=== PATIENT | male | born 1985 | race Caucasian/White ===

== ENCOUNTER 2024-05-27 02:53 | Emergency (ER) | payer MEDICAID, SELFPAY ==
[2024-05-27 03:00] VITALS: PULSE 111; O2SAT 97
[2024-05-27 03:42] VITALS: BP 132/87; PULSE 94; RESP 20; TEMP 36.7; O2SAT 98; BMI 34.5
[2024-05-27 04:41] LABS: Influenza A PCR NEGATIVE (Negative); Influenza B PCR NEGATIVE (Negative); Resp Syncy Virus RNA Qual PCR NEGATIVE (Negative); SARS COV2 PCR INHOUSE NEGATIVE (Negative)
--- NOTE | 2024-05-27 06:01 | ED.GENADULT ---
HPI - General Adult General Chief complaint: Nausea/Vomiting/Diarrhea Stated complaint: Sick, ETOH crack, was w/ PD Time Seen by Provider: 05/27/24 05:56 Source: patient, EMS and police Mode of arrival: EMS Limitations: other History of Present Illness ED Provider: Dr. Darlyn Jimenez HPI narrative: Patient comes to the emergency room via ambulance. According to EMS, earlier today PD was looking for the patient, seems that patient was shoplifting earlier today at [facility]. They [place] the [place]. When PD went to arrest him, patient reported nausea and diarrhea no abdominal pain and reports drug use. PD called EMS and EMS brought him to the emergency room. Patient denies suicidal or homicidal ideation. Patient denies any falls. Related Data Allergies Allergy/AdvReac Type Severity Reaction Status Date / Time No Known Allergies Allergy Verified 05/27/24 03:47 Review of Systems Review of Systems: Constitutional : No Weight loss, No Fever, No Chills, No Night Sweats, No Fatigue, No Malaise ENT/Mouth : No Hearing loss, No Ear Pain, No Nasal Congestion, No Sinus Pain, No Hoarseness, No sore throat, No Rhinorrhea, No Swallowing Difficulty Eyes: No Eye Pain, No Swelling, No Redness, No Foreign Body, No Discharge, No Vision Changes Cardiovascular : No Chest Pain, No SOB, No Dyspnea on Exertion, No Orthopnea, No Edema, No Palpitations Respiratory : No Cough, No Sputum, No Wheezing, No Smoke Exposure, No Dyspnea Gastrointestinal : No Nausea, No Vomiting, No Diarrhea, No Constipation, No abdominal Pain, No Hematochezia, No Melena Genitourinary : no irregular bleeding, No Dysuria, No Urinary Frequency, No Hematuria, No Urinary Incontinence, No Urgency, No Flank Pain, No Urinary Flow Changes, No Hesitancy Musculoskeletal : No joint pain, No Myalgias, No Joint Swelling Skin : No Skin Lesions, No rash Neuro : No Weakness, No Numbness, No Paresthesias, No Loss of Consciousness, No Dizziness, No Headache Psych : No Anxiety/Panic, No Depression, No SI/HI/AH/VH, admits to polysubstance abuse Heme/Lymph: No Bruising, No Bleeding,No Lymphadenopathy Endocrine : No Polyuria, No Polydipsia, No Temperature Intolerance [facility] Past Medical History Medical History (Updated 05/27/24 @ 06:05 by Darlyn Jimenez MD) Polysubstance abuse Physical Exam ED Vital Signs: Vital Signs - 24 hr 05/27/24 03:42 Temperature 98.0 F Pulse Rate 94 Respiratory Rate 20 Blood Pressure 132/87 Pulse Oximetry 98 Oxygen Delivery Method Room Air BMI result Body Mass Index 34.5 Const Other: Appearance: Alert. Somnolent, easily arousable Eyes: Pupils equal, round and reactive to light. ENT: Pharynx normal. Neck: Normal inspection. Neck supple. No lymph nodes noted. No crepitus CVS: Normal heart rate and rhythm. Pulses normal. Normal S1 and S2 Respiratory: No respiratory distress. Breath sounds normal. No Wheezing. No rales Abdomen: Soft and nontender. No rigidity. No distention. Skin: Skin warm and dry. Normal skin color. Normal skin turgor. Extremities: No lower extremity edema. No Lacerations. No Rash Neuro: Moving all extremities Psych: calm, cooperative, somnolent but easily arousable Course Course Course Narrative: -patient denies any falls, patient does not have any obvious injuries to indicate any kind of trauma. -all of patient's labs pending -on arrival, patient denied SI or HI when he was awake, alert and oriented x3. Patient admitted to using drugs. -physician observation started at 6 a.m. Medical Decision Making Medical Decision Making MDM Narrative: Patient likely used ETOH and/or drugs. No signs of trauma -patient is not on a Section 12, patient is not SI or HI -metabolize to freedom Differential Diagnosis Differential Diagnoses: The differential diagnosis associated with the presentation includes (As above) Admission/Observation Consideration of admission/observation: Escalation of care including admission/observation considered (Patient is under physician observation waiting to become sober) Lab Data Labs: Lab Results 05/27/24 Range/Units 03:49 Influenza Type A (PCR) NEGATIVE (Negative) Influenza Type B (PCR) NEGATIVE (Negative) RSV RNA Qual (PCR) NEGATIVE (Negative) SARS-CoV-2 RNA (RT-PCR) NEGATIVE (Negative) Discharge Plan Discharge Clinical Impression: Polysubstance abuse Patient Disposition: Still a Patient Print Language: Serbian
[2024-05-27 06:35] LABS: Basophils Percent Auto 0.2 % (0-2); Eosinophils Percent Auto 0.7 % (0-4); Hematocrit 37.7 % (42.0-52.0); Imm Gran Abs Auto 0.02 X10*3/uL (0.00-0.03); Imm Gran Pct Auto 0.3 % (0.0-0.4); Lymphocytes Absolute Auto 0.7 X10*3/uL (1.2-4.9); Lymphocytes Percent Auto 11.8 % (20-40); MANUAL DIFF FLAG NO; Mean Corpuscular HGB Conc 37.1 g/dl (31.0-36.0); Mean Corpuscular Volume 83.6 fL (80.0-98.0); Mean Platelet Volume 11.3 fL (9.4-12.4); Monocytes Absolute Auto 0.6 X10*3/uL (0.1-1.2); Monocytes Percent Auto 10.1 % (2-11); Neutrophils Absolute Auto 4.5 x10*3/uL (2.0-8.3); Neutrophils Percent Auto 76.9 % (45-73); Platelet Count 274 X10*3/uL (160-400); Red Blood Count 4.51 X10*6/uL (4.60-5.80); Red Cell Distribution Width 12.5 % (11.0-16.0); White Blood Count 5.9 X10*3/uL (4.8-10.8)
[2024-05-27 06:49] LABS: Amphetamine Screen Urine Not Detected (Not Detect); Barbiturates, Urine Not Detected (Not Detect); Benzodiazepines Screen Urine Not Detected (Not Detect); Buprenorphine Scr Not Detected (Not Detect); Cannabinoid Screen Urine POSITIVE (Not Detect); Cocaine Screen Urine POSITIVE (Not Detect); Fentanyl, urine Not Detected (Not Detect); Methadone Screen, Urine Not Detected (Not Detect); Opiate Screen Urine Not Detected (Not Detect); Oxycodone Screen Urine Not Detected (Not Detect); Phencyclidine Screen Urine Not Detected (Not Detect)
[2024-05-27 07:27] VITALS: BP 125/64; PULSE 79; RESP 16; TEMP 37.4; O2SAT 98
[2024-05-27 07:52] LABS: Alanine Aminotransferase 23 U/L (0-40); Albumin Level 4.1 g/dL (3.5-5.0); Alkaline Phosphatase 88 U/L (39-117); Anion Gap 13 (12-20); Aspartate Amino Transferase 31 U/L (5-37); Bilirubin Direct 0.3 mg/dL (0.0-0.5); Bilirubin Total 0.7 mg/dL (0.0-1.0); Blood Urea Nitrogen 12 mg/dL (9-16); Calcium 8.8 mg/dL (8.4-10.2); Carbon Dioxide 25 mmol/L (22-29); Chloride 103 mmol/L (96-108); Creatinine Clr Calc Pharmacy 109.4; Estimated Glomerular Filt Rate > 60; Ethanol < 10 mg/dL; Glucose Random 96 mg/dL (60-115); Magnesium 1.9 mg/dL (1.6-2.6); Sodium 138 mmol/L (135-145); Total Protein 7.5 g/dL (6.5-8.0)
[2024-05-27] MEDS: Potassium Chloride ER 20 MEQ TAB.ER.PRT 40 MEQ PO (09:20)
--- NOTE | 2024-05-27 10:24 | PC.NURSE ---
Pt intermittently awake, eating and drinking. Accepted PO K+ as ordered and back to sleep. Able to make needs known. Camn be aggressive at times but redirected verbally
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
[2024-05-27] MEDS: Naloxone HCl Nasal TAKE HOME 4 MG SPRAY 8 MG NOSTRILALT (12:55)
[2024-05-27 13:16] VITALS: BP 147/74; PULSE 76; RESP 16; TEMP 36.2; O2SAT 96
== END 2024-05-27 13:17 | disposition home or self-care (01) ==
PROVIDERS: Emergency Provider Emergency Medicine
DX: R11.2 Nausea with vomiting, unspecified (principal); F19.10 Other psychoactive substance abuse, uncomplicated; R19.7 Diarrhea, unspecified; Z79.899 Other long term (current) drug therapy; Z51.81 Encounter for therapeutic drug level monitoring; Z03.818 Encounter for observation for suspected exposure to other biological agents ruled out
CPT/HCPCS: 0241U; 36415; 80048; 80076; 80307; 83735; 85025; 99283; S9485

== ENCOUNTER 2024-05-27 13:44 | Inpatient (IN) | payer MEDICARE, MEDICAID, SELFPAY ==
[2024-05-27 13:47] VITALS: BP 142/86; PULSE 89; RESP 18; TEMP 37.6; O2SAT 99; BMI 30.8
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
[2024-05-27 14:20] VITALS: BP 144/75; PULSE 86; RESP 16; O2SAT 98
[2024-05-27 14:21] VITALS: RESP 14
--- NOTE | 2024-05-27 14:24 | PC.NURSE ---
pt re-presents to the emergency department after being discharged from the main ED. Patient is self reporting paranoia, asking what year it is, why the president is an alien and why he has to place change roof bolter. Pt agitated, originally unwilling to place change roof bolter. JR, Security watching over patient as he changes. Patient initially unwilling to give up belongings but did eventually place change roof bolter. When this RN attempted to interview patient as to why he is here patient states Its too damn early to go home, why the fuck you think Im here . When asked if he feels suicidal or homicidal pt reports man don't fucking ask me those damn questions, I aint feeling any of that shit, dont ask me nothin . Patient was escorted to his room and now appears to be sleeping, RR even and unlabored. Patient is refusing to give urine sample at this time
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
[2024-05-27 20:12] VITALS: BP 155/92; PULSE 90; RESP 18; TEMP 37.4; O2SAT 99
[2024-05-27] MEDS: OLANZapine 10 MG TABLET PO (21:58)
[2024-05-27] MEDS: traZODone HCL 50 MG TABLET PO (22:01)
[2024-05-28] MEDS: LORazepam 1 MG TABLET 2 MG PO ×5 (00:13→20:12)
--- NOTE | 2024-05-28 00:46 | PC.NURSE ---
0010: pt pacing unit requesting a med. PRN medication given.
[2024-05-28] MEDS: diphenhydrAMINE HCL 25 MG CAPSULE 50 MG PO (01:53)
[2024-05-28] MEDS: HaloperidoL 5 MG TABLET PO (01:53)
--- NOTE | 2024-05-28 01:54 | PC.NURSE ---
Pt was continuing to be disruptive, yelling at staff, continuing to get in the shower after being told no, slamming the door to the bathroom and repeatedly asking for money for cigarettes. MD Jimenez aware. Pt medicated to AUG.
[2024-05-28] MEDS: Loperamide HCl 2 MG CAPSULE 4 MG PO (03:00)
[2024-05-28 03:03] VITALS: BP 166/104; PULSE 93; RESP 18; TEMP 36.7; O2SAT 97
--- NOTE | 2024-05-28 03:04 | PC.NURSE ---
Pt has had at least 4 episodes of diarrhea since beginning of my shift. MD Jimenez aware. 4mg initial dose Imodium ordered per .
--- NOTE | 2024-05-28 08:17 | PHA.MEDREC ---
Pharmacy Consult ? Medication Reconciliation Pharmacy has reviewed the medication reconciliation done by nursing. claims match med list.
--- NOTE | 2024-05-28 08:23 | PHA.MEDREC ---
Addendum entered by Mauro Gonzales RPh 05/28/24 08:28: Reviewed by [facility] Original Note: Pharmacy Consult ? Medication Reconciliation Pharmacy has Reviewed the medication reconciliation done by nursing. Patient is uncooperative and aggressive with staff per ED nurse. No contacts on file to verify medications. Couldn't confirm last dose of Invega Sustenna 156 mg. last filled 05/25/24 for 28 days.
[2024-05-28] MEDS: OLANZapine 10 MG TABLET PO ×2 (09:15→20:13)
--- NOTE | 2024-05-28 11:58 | PC.NURSE ---
patient awake most of the morning. began escalating with his behavior, yells out swears at times but then calms down. was given Zyprexa PO which patient willingly took. patient continued behaviors and was given Ativan PO which he also willingly took. patient came up to nurses station multiple times demanding food, asking to leave, some times mumbles to himself and hard to understand. patient again requested clothes and when told he would not be given clothes yelled fuck loudly in front of nurses station. patient brought back to room by security. will continues to assess behavior.
--- NOTE | 2024-05-28 12:24 | PC.NURSE ---
patient sleeping at this time
[2024-05-28 15:27] VITALS: BP 144/75; PULSE 84; RESP 16; TEMP 36.7; O2SAT 100
[2024-05-28] MEDS: traZODone HCL 50 MG TABLET PO (20:13)
[2024-05-28 23:24] LABS: Appearance Urine Clear; Color Urine Yellow; Glucose Urine UA Negative (Negative); Leukocyte Esterase Urine Negative (Negative); Nitrite Urine Negative (Negative); Specific Gravity - Urine <= 1.005 (1.005-1.025); UMIC TRIGGER UACC YES; Urine Blood Small (1+) (Negative); Urine Ketones Negative (Negative); Urine Protein Negative (Neg-Trace)
[2024-05-28 23:27] LABS: Bacteria Urine None Seen (None Seen); Hyaline Casts Urine 0-2 /LPF (0-2); Squamous Epithelial Cell Urine 0-2 /HPF (0-2); WBC Urine 0-5 /HPF (0-5)
[2024-05-28 23:37] LABS: Amphetamine Screen Urine Not Detected (Not Detect); Barbiturates, Urine Not Detected (Not Detect); Benzodiazepines Screen Urine Not Detected (Not Detect); Buprenorphine Scr Not Detected (Not Detect); Cannabinoid Screen Urine Not Detected (Not Detect); Cocaine Screen Urine Not Detected (Not Detect); Fentanyl, urine Not Detected (Not Detect); Methadone Screen, Urine Not Detected (Not Detect); Opiate Screen Urine Not Detected (Not Detect); Oxycodone Screen Urine Not Detected (Not Detect); Phencyclidine Screen Urine Not Detected (Not Detect)
--- NOTE | 2024-05-29 | ECG_ITS ---
Test Reason : med clearance Blood Pressure : / mmHG Vent. Rate : 078 BPM Atrial Rate : 078 BPM P-R Int : 120 ms QRS Dur : 086 ms QT Int : 366 ms P-R-T Axes : 036 045 021 degrees QTc Int : 417 ms Normal sinus rhythm Minimal voltage criteria for LVH, may be normal variant ( Sokolow-Singletary ) Nonspecific T wave abnormality Abnormal ECG No previous ECGs available Referred By: Gonzalo Devine Electronically Signed By:ABDIEL VILLAR
[2024-05-29] MEDS: LORazepam 1 MG TABLET 2 MG PO ×4 (02:09→21:48)
[2024-05-29] MEDS: HaloperidoL 5 MG TABLET 10 MG PO (02:10)
[2024-05-29] MEDS: diphenhydrAMINE HCL 25 MG CAPSULE 50 MG PO (02:10)
[2024-05-29 06:11] VITALS: BP 135/86; PULSE 92; RESP 16; TEMP 36.8; O2SAT 98
--- NOTE | 2024-05-29 06:31 | PC.NURSE ---
Patient slept through the night, no distress observed/reported, disposition per care team is sec-12 inpatient bed search, med rec completed/compliant, behavior loud, disruptive, and difficult to follow direction, VSS, will continue to monitor
[2024-05-29 08:42] LABS: Alanine Aminotransferase 25 U/L (0-40); Alkaline Phosphatase 91 U/L (39-117); Anion Gap 13 (12-20); Aspartate Amino Transferase 26 U/L (5-37); Bilirubin Total 0.3 mg/dL (0.0-1.0); Blood Urea Nitrogen 7 mg/dL (9-16); Carbon Dioxide 21 mmol/L (22-29); Chloride 107 mmol/L (96-108); Creatinine Clr Calc Pharmacy 137.3; Estimated Glomerular Filt Rate > 60; Glucose Random 111 mg/dL (60-115); Potassium 3.3 mmol/L (3.3-5.1); Sodium 138 mmol/L (135-145); Total Protein 7.7 g/dL (6.5-8.0)
[2024-05-29 09:10] LABS: Basophils Percent Auto 0.5 % (0-2); Eosinophils Absolute Auto 0.2 X10*3/uL (0.0-0.4); Eosinophils Percent Auto 2.5 % (0-4); Hematocrit 36.9 % (42.0-52.0); Imm Gran Abs Auto 0.02 X10*3/uL (0.00-0.03); Imm Gran Pct Auto 0.3 % (0.0-0.4); Lymphocytes Absolute Auto 1.6 X10*3/uL (1.2-4.9); MANUAL DIFF FLAG SCAN; Mean Corpuscular Volume 82.7 fL (80.0-98.0); Monocytes Absolute Auto 0.9 X10*3/uL (0.1-1.2); Neutrophils Absolute Auto 3.6 x10*3/uL (2.0-8.3); Neutrophils Percent Auto 57.7 % (45-73); PLT CLUMP 1; Red Blood Count 4.46 X10*6/uL (4.60-5.80); Red Cell Distribution Width 12.7 % (11.0-16.0); SCAN SMEAR FLAG 1
[2024-05-29 09:12] LABS: White Blood Count 6.3 X10*3/uL (4.8-10.8)
[2024-05-29 09:13] LABS: Hemoglobin 12.4 g/dl (14.0-18.0); Mean Corpuscular HGB Conc 33.6 g/dl (31.0-36.0); Mean Corpuscular Hemoglobin 27.8 pg (27.0-33.0)
[2024-05-29 09:14] LABS: Platelet Count 164 X10*3/uL (160-400)
[2024-05-29 09:16] LABS: SLIDE REVIEW VERIFIED
--- NOTE | 2024-05-29 11:27 | PC.NURSE ---
pt remains delusional with unorganized thoughts. inaudible speech/difficult to conversate with but remains calm/cooperative. pt verbalizes increase in anxiety - prn medication utilized. effectiveness pending.
--- NOTE | 2024-05-29 13:38 | PC.NURSE ---
report given to SILVIA Srinivasan on M5 at this time.
[2024-05-29] MEDS: Nicotine Polacrilex 2 MG GUM 4 MG BUCCAL (14:07)
[2024-05-29] MEDS: hydrOXYzine HCL 25 MG TABLET PO ×2 (14:07→21:48)
[2024-05-29 14:45] VITALS: BP 136/84; PULSE 88; RESP 16; TEMP 36.9; O2SAT 100
[2024-05-29 14:46] VITALS: BMI 31.0
--- NOTE | 2024-05-29 17:04 | PC.ADMIT ---
Jay is a 39 year old male admitted to [facility] from the ED POD at 1421 with a dz of Schizoaffective disorder bipolar type. He refused to sign a CV with Dr. Kern and is here on a 12 B at this time. Pt was picked up by Cory CRAWFORD for shoplifting?at the [employer] when he? began to complain of nausea and diarrhea. He was brought to the ED and found to be delusional, paranoid, and making hypersexual remarks. Pt is not known to the CARE team but has had multiple?IPLOC stays with most recently on [facility] at [facility]. Per CARE team note he has a hx of polysubstance abuse, schizoaffective disorder, bipolar type, alcohol use, and medication non compliance. Per pharmacy documentation, they were unable to confirm the last dose of Invega Sustena but Jay states he last had an injection by? the nurse that gave me it on?05/25 . He states he has been taking his medication but recently used cocaine and marijuana and thinks his cocaine might have been laced, tox screen negative for all substances however. Per CARE team note, pt disclosed being non compliant with medications. Jay was very irritable upon arrival, clearly sedated from previous prn given in the ED, but was cooperative with safety and skin check which were unremarkable. His speech was slow and slurred making it difficult to understand him. He was able to voice that he was overwhelmed and felt he was being asked too many questions at once. He was given a break and? was able to resume with admission questions. He denied SI/HI/AVH, he agreed to receive Flu vaccine and an addictions consult placed as agreed. He also stated You guys just want to over medicate me and make me like a zombie and kill me! TW reassured him of his safety and oriented him to the unit and gave him some snacks/menu selection to fill out. He has not made any inappropriate/sexual comments since admission to . He is on q15 min checks at this time.?
[2024-05-29] MEDS: Flu Vacc TS2024-25(6mos up)/PF 0.5 ML SYRINGE IM (18:12)
[2024-05-29 20:00] VITALS: BP 163/93
[2024-05-29] MEDS: traZODone HCL 50 MG TABLET PO (20:08)
[2024-05-29] MEDS: OLANZapine 10 MG TABLET PO (20:09)
[2024-05-29 20:30] VITALS: PULSE 107; O2SAT 97
[2024-05-30] MEDS: LORazepam 1 MG TABLET 2 MG PO ×3 (01:43→11:54)
[2024-05-30] MEDS: Nicotine Polacrilex 2 MG GUM 4 MG BUCCAL ×2 (02:32→10:38)
[2024-05-30 09:41] LABS: Estimated Average Glucose 108 mg/dL; Hemoglobin A1C 121.0042 umol/L; Hemoglobin A1c % 5.4 % (<6.0); Total Hemoglobin (HGBA1C) 3414.9334 umol/L
[2024-05-30 09:55] LABS: Cholesterol 113 mg/dL (<200); HDL Cholesterol 40 mg/dL (>40); LDL Cholesterol Calculated 65 mg/dL (<100); Magnesium 1.8 mg/dL (1.6-2.6); Triglycerides 44 mg/dL (<150)
[2024-05-30 10:09] LABS: Free T4 (Free Thyroxine) 1.31 ng/dL (0.71-1.85); Thyroid Stimulating Hormone 1.97 uIU/mL (0.32-4.0)
[2024-05-30 10:21] LABS: Folate 7.4 ng/mL (> or = 4.0); Vitamin B12 511 pg/mL (200-900)
[2024-05-30] MEDS: hydrOXYzine HCL 25 MG TABLET PO ×2 (10:38→22:25)
[2024-05-30] MEDS: Acetaminophen 325 MG TABLET 650 MG PO (10:38)
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
[2024-05-30 20:00] VITALS: BP 163/92; PULSE 92; TEMP 36.6; O2SAT 99
[2024-05-30] MEDS: traZODone HCL 50 MG TABLET PO ×2 (20:05→22:50)
[2024-05-30] MEDS: OLANZapine 10 MG TABLET PO (20:06)
[2024-05-30 22:00] VITALS: BP 155/77; PULSE 104; TEMP 37.3; O2SAT 99
[2024-05-31] MEDS: OLANZapine 5 MG TABLET PO ×4 (01:38→18:22)
[2024-05-31] MEDS: Nicotine Polacrilex 2 MG GUM 4 MG BUCCAL ×3 (01:38→13:07)
[2024-05-31] MEDS: LORazepam 1 MG TABLET 2 MG PO ×3 (03:01→20:26)
[2024-05-31] MEDS: OLANZapine 10 MG TABLET PO ×2 (07:58→20:26)
[2024-05-31 08:00] VITALS: BP 143/83; PULSE 110; RESP 18; TEMP 36.9; O2SAT 97
[2024-05-31] MEDS: hydrOXYzine HCL 25 MG TABLET PO ×3 (08:16→23:52)
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
[2024-05-31] MEDS: Paliperidone ER 3 MG TAB.ER.24 PO (10:18)
[2024-05-31] MEDS: Paliperidone Palmitate 156 MG/ML SYRINGE IM (11:06)
[2024-05-31] MEDS: Lithium Carbonate ER 450 MG TABLET.ER PO ×2 (11:40→20:26)
[2024-05-31 20:00] VITALS: BP 171/92; PULSE 96; TEMP 36.7; O2SAT 100
[2024-06-01] MEDS: LORazepam 1 MG TABLET 2 MG PO ×3 (03:49→22:47)
[2024-06-01] MEDS: OLANZapine 5 MG TABLET PO ×2 (04:27→18:22)
[2024-06-01] MEDS: Acetaminophen 325 MG TABLET 650 MG PO ×2 (04:29→12:01)
[2024-06-01 08:00] VITALS: BP 137/88; PULSE 86; TEMP 36.9; O2SAT 98
[2024-06-01] MEDS: OLANZapine 10 MG TABLET PO ×2 (08:10→21:12)
[2024-06-01] MEDS: hydrOXYzine HCL 25 MG TABLET PO ×2 (10:53→16:23)
--- NOTE | 2024-06-01 11:01 | MHC.RECOVRN ---
AUDIT-C Brief Intervention Pt had positive screen for unhealthy alcohol use on admission. Attempted to meet with pt to discuss alcohol use and offer resources, pt declined. Per patient's RN, pt now denies alcohol use.
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
[2024-06-01] MEDS: traZODone HCL 50 MG TABLET PO (21:12)
[2024-06-01] MEDS: Doxepin HCl 25 MG CAPSULE 50 MG PO (21:12)
[2024-06-01] MEDS: Lithium Carbonate ER 450 MG TABLET.ER 900 MG PO (21:12)
[2024-06-01] MEDS: Nicotine Polacrilex 2 MG GUM 4 MG BUCCAL (22:50)
[2024-06-02] MEDS: hydrOXYzine HCL 25 MG TABLET PO ×4 (00:51→20:54)
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
[2024-06-02] MEDS: OLANZapine 5 MG TABLET PO (02:21)
[2024-06-02] MEDS: LORazepam 1 MG TABLET 2 MG PO ×5 (02:26→21:25)
[2024-06-02] MEDS: OLANZapine 10 MG TABLET PO ×5 (02:59→20:52)
[2024-06-02 08:00] VITALS: BP 143/84; PULSE 101; RESP 18; TEMP 36.5; O2SAT 99
[2024-06-02] MEDS: Nicotine Polacrilex 2 MG GUM 4 MG BUCCAL ×2 (08:01→15:17)
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
[2024-06-02 20:00] VITALS: BP 126/72; PULSE 101; O2SAT 96
[2024-06-02] MEDS: Doxepin HCl 25 MG CAPSULE 50 MG PO (20:52)
[2024-06-03] MEDS: traZODone HCL 50 MG TABLET PO (01:16)
[2024-06-03] MEDS: Lithium Carbonate ER 450 MG TABLET.ER 900 MG PO ×2 (01:16→22:35)
[2024-06-03] MEDS: OLANZapine 10 MG TABLET PO ×5 (01:39→22:34)
[2024-06-03] MEDS: LORazepam 1 MG TABLET 2 MG PO ×4 (01:39→22:29)
[2024-06-03] MEDS: chlorproMAZINE HCl 100 MG TABLET PO ×2 (02:22→14:32)
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
[2024-06-03] MEDS: chlorproMAZINE HCl 25 MG TABLET 50 MG PO ×2 (04:04→08:55)
--- NOTE | 2024-06-03 05:55 | PC.NURSE ---
Patient has called 911 again; staff spoke to PD and apologized on that phone call.
[2024-06-03 08:00] VITALS: PULSE 88; RESP 150; TEMP 36.4; O2SAT 98
[2024-06-03] MEDS: Paliperidone Palmitate 156 MG/ML SYRINGE IM (09:24)
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
[2024-06-03] MEDS: Acetaminophen 325 MG TABLET 650 MG PO ×2 (14:32→20:52)
[2024-06-03] MEDS: hydrOXYzine HCL 25 MG TABLET PO (15:15)
[2024-06-03] MEDS: Nicotine Polacrilex 2 MG GUM 4 MG BUCCAL (15:15)
[2024-06-03] MEDS: Doxepin HCl 25 MG CAPSULE 50 MG PO (22:34)
[2024-06-04] MEDS: traZODone HCL 50 MG TABLET PO ×2 (02:12→20:57)
[2024-06-04] MEDS: LORazepam 1 MG TABLET 2 MG PO (03:31)
[2024-06-04] MEDS: chlorproMAZINE HCl 100 MG TABLET PO ×3 (07:20→18:31)
[2024-06-04 08:00] VITALS: BP 139/102; PULSE 104; RESP 18; TEMP 36.6; O2SAT 100
[2024-06-04] MEDS: OLANZapine 10 MG TABLET PO ×2 (08:38→13:01)
[2024-06-04] MEDS: Magnesium Hydrox/Alum Hydrox 30 ML ORAL.SUSP PO (08:42)
[2024-06-04 09:13] LABS: Lithium 0.45 mmol/L (0.60-1.20)
[2024-06-04 09:25] LABS: Blood Urea Nitrogen 12 mg/dL (9-16); Creatinine Clr Calc Pharmacy 120.5; Estimated Glomerular Filt Rate > 60
[2024-06-04 09:39] LABS: TSH reflex Free T4 3.43 uIU/mL (0.32-4.0)
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
[2024-06-04] MEDS: hydrOXYzine HCL 25 MG TABLET PO ×2 (11:37→18:31)
[2024-06-04] MEDS: Paliperidone ER 6 MG TAB.ER.24 PO (11:38)
[2024-06-04] MEDS: Nicotine Polacrilex 2 MG GUM 4 MG BUCCAL (12:21)
[2024-06-04] MEDS: Divalproex Sodium ER 250 MG TAB.ER.24H 750 MG PO ×2 (15:01→20:57)
[2024-06-04] MEDS: HaloperidoL 5 MG TABLET 10 MG PO (15:30)
[2024-06-04 20:00] VITALS: BP 132/72; PULSE 105; RESP 18; TEMP 37.3; O2SAT 96
--- NOTE | 2024-06-04 20:04 | PC.NURSE ---
Patient was standing at med room door at approximately 2000. This music writer asked How can I help you? and patient replied Gimme some sex. Patient redirected.
[2024-06-04] MEDS: Doxepin HCl 25 MG CAPSULE 50 MG PO (20:55)
[2024-06-04] MEDS: Lithium Carbonate ER 450 MG TABLET.ER 900 MG PO (20:57)
[2024-06-04] MEDS: OLANZapine ODT 10 MG TAB.RAPDIS 30 MG TRANSLINGU (21:27)
[2024-06-05] MEDS: chlorproMAZINE HCl 100 MG TABLET PO ×4 (00:27→21:03)
[2024-06-05] MEDS: Nicotine Polacrilex 2 MG GUM 4 MG BUCCAL ×2 (00:27→18:48)
[2024-06-05] MEDS: OLANZapine 10 MG TABLET PO ×3 (00:27→17:36)
[2024-06-05] MEDS: hydrOXYzine HCL 25 MG TABLET PO (00:27)
[2024-06-05] MEDS: Paliperidone ER 6 MG TAB.ER.24 PO (07:41)
[2024-06-05 08:00] VITALS: BP 149/81; PULSE 105; TEMP 37.1; O2SAT 100
--- NOTE | 2024-06-05 09:59 | HO.PSYCHPN ---
Subjective Subjective Date of Service: 06/05/24 Reason For Visit: Schizoaffective disorder Interim History: met with patient; discussed with team no change in presentation and pt remains disorganized in speech and behavior, yelling, slamming doors, saying bizarre or things completely unrelated to current situation. Mental Status Exam Mental Status Exam Narrative: Pt is alert and oriented; behavior is disorganized, manic, irritable, yelling, slamming doors, demanding and saying either bizarre or sexually inappropriate things; at times can also be cooperative and friendly; patient is not in distress; dressed in casual attire, disheveled; mood is described as good and affect constricted; eye contact appropriate; Speech is back to mumbling; sometimes loud sometimes soft volume; psychomotor agitation present; thought process can be goal directed but also considerably disorganized; Thought content is on leaving the hospital and coming back, with paranoid delusional ideations; denies any SI/HI. Positive for AH and patient is internally preoccupied. Patients insight and judgment impaired. Diagnostics Vital Signs (24Hr): Vital Signs - 24 hr 06/04/24 20:00 Temperature 99.1 F Pulse Rate 105 H Respiratory Rate 18 Blood Pressure 132/72 Pulse Oximetry 96 Oxygen Delivery Method Room Air BMI result Body Mass Index 31.0 Labs 05/29/24 08:13 06/08/24 11:03 Labs: Laboratory Results - last 48 hr 06/04/24 08:51 BUN 12 Creatinine 0.88 Estim Creat Clear Calc 120.5 Estimated GFR > 60 TSH 3.43 [place] 0.45 L Medications Medications Current Medications Acetaminophen (Acetaminophen 325 Mg Tablet) 650 mg PO Q6H PRN PRN Reason: Headache/Pain Mild Scale (1-3) Last Admin: 06/03/24 20:52 Dose: 650 mg Al Hydroxide/Mg Hydroxide (Magnesium Hydrox/Alum Hydrox 30 Ml Oral.Susp) 30 ml PO Q6H PRN PRN Reason: Heartburn/Nausea Last Admin: 06/04/24 08:42 Dose: 30 ml Chlorpromazine HCl (Chlorpromazine Hcl 100 Mg Tablet) 100 mg PO Q4H PRN PRN Reason: agitation Last Admin: 06/05/24 07:41 Dose: 100 mg Divalproex Sodium (Divalproex Sodium Er 250 Mg Tab.Er.24h) 750 mg PO BEDTIME HELDER Last Admin: 06/04/24 20:57 Dose: 750 mg Doxepin HCl (Doxepin Hcl 25 Mg Capsule) 50 mg PO BEDTIME HELDER Last Admin: 06/04/24 20:55 Dose: 50 mg Hydroxyzine HCl (Hydroxyzine Hcl 25 Mg Tablet) 25 mg PO Q6H PRN PRN Reason: Anxiety Last Admin: 06/05/24 00:27 Dose: 25 mg [place] Carbonate ([place] Carbonate Er 450 Mg Tablet.Er) 900 mg PO BEDTIME HELDER Last Admin: 06/04/24 20:57 Dose: 900 mg Magnesium Hydroxide (Milk Of Magnesia 30 Ml Oral.Susp) 30 ml PO DAILY PRN PRN Reason: Constipation Nicotine (Nicotine 21 Mg Patch.Td24) 21 mg TRANSDERMA DAILY PRN PRN Reason: nicotine cravings Nicotine Polacrilex (Nicotine Polacrilex 2 Mg Gum) 4 mg BUCCAL Q2H PRN PRN Reason: Nicotine Cravings Last Admin: 06/05/24 00:27 Dose: 4 mg Olanzapine (Olanzapine 10 Mg Tablet) 10 mg PO TID PRN PRN Reason: agitation Last Admin: 06/05/24 09:43 Dose: 10 mg Olanzapine (Olanzapine Odt 10 Mg Tab.Rapdis) 30 mg TRANSLINGU BEDTIME HELDER Last Admin: 06/04/24 21:27 Dose: 30 mg Paliperidone (Paliperidone Er 6 Mg Tab.Er.24) 6 mg PO DAILY HELDER Last Admin: 06/05/24 07:41 Dose: 6 mg Trazodone HCl (Trazodone Hcl 50 Mg Tablet) 50 mg PO BEDTIME HELDER Last Admin: 06/04/24 20:57 Dose: 50 mg Allergies Allergies Allergy/AdvReac Type Severity Reaction Status Date / Time No Known Allergies Allergy Verified 05/27/24 13:53 Assessment & Plan Assessment & Plan (1) Schizoaffective disorder, bipolar type: Status: Acute Code(s): F25.0 - Schizoaffective disorder, bipolar type Plan HPI: Patient is a 39-year-old male with history of schizoaffective disorder bipolar type, history of polysubstance abuse who presents for disorganized behavior. Patient is a poor historian, initially mumbling it is difficult to understand him. ED/care team reports that patient was disorganized at the [facility] [employer], police detained him for shoplifting but instead brought him to the hospital. In the ED, patient was making disorganized, delusional and sexually inappropriate comments such as someone tried to kill me...hang my black ass...Alexandre is an alien...they said i was shoplifting but i wasn't...[employer] [facility] blew up....i'm a virgin, never had sex...just think of hard horney pussy... On the unit, patient got irritable, was yelling and demanding to be discharged. He did get into brief verbal altercation with a peer and may have thrown a banana peel at her. Verbally, Patient did clear up a bit and though still mumbling, was talking a little more; he seemed cooperative but remained vague and disorganized when talking about psychiatric illness or events leading up to this admission. He initially told database report writer he wants to discharge today because he has to pick his daughter up at 16:30; then he said he needs to discharge because he asked to go to his job this afternoon... He remained on a Section 12 B, However he accepted that he will not be discharging today and he was amenable to restarting medication. He denied drinking any alcohol (and UDS negative). [employer] approached him later and he was a little more open and said that has than hearing voices that have been upsetting him; he also has been very worried about people coming after him and says he wants medication to help him with the symptoms... He is not sure if he got his Invega Sustenna shot at his last admission. Patient's sister talked with social research assistant who reports that patient has been off meds since 05/08 (following discharge from psych admission at [facility]); says he's not engaging with VNA and this past week was verbally aggressive to VNA; he's been making delusional comments saying he's being attacked and threatened with a gun and recently when his sister visited he had barricaded the door with trash, needing the police to get the door open. She says he does not have a daughter. Formulation/clinical reasoning: Patient has a diagnosis of schizoaffective disorder and seems to have quickly decompensated after going off medications. It is not clear when he last had his Invega Sustenna shot although it is prescribed at 156 mg which is likely too low. He is amenable to getting back on medications including Zyprexa which is restarted now but a slightly lower dose. Patient was also on lithium and doxepin at last hospitalization however database report writer has not restarted these, as it is not clear if patient is adherent or organized enough in the community to be on a medication such as lithium that requires monitoring. Will continue to get collateral Hospital course: 05/31 Patient remains quite disorganized in both speech and behavior. Patient repeatedly comes up to database report writer saying that he needs to go home, do some task and then he will come back to the hospital later on. Each time database report writer explains that this is not possible but 5 minutes later he comes up and asks again. He says he needs to go back to his apartment because he has a VNA for his diabetic friend... Or that he has to go picker tender his check... Patient tells database report writer he is a good cook and his friend is a better cook and to give him a chance... Patient agreed to restarting lithium. [employer] discussed lithium which he agreed to restart but patient said he was up all night taking the initiative and getting himself on lithium... Said he saw a peer stealing something and smoking crack Patient said he has been up all night -discussed medication patient agrees to get back on Invega Sustenna, lithium, Zyprexa, doxepin -sign CV and then a 3 day 06/01 Patient remains disorganized in speech and behavior however he has become more cooperative and with much less inappropriate remarks. Still comes up and asks throughout the day to leave the hospital saying he will come back later, saying he needs fresh air, needs to get a check or other things. Each time he accepts that this is not possible but still lacks. Patient continues to ask to get phone numbers off of his phone and was irritated that this did not happen sooner however has continued to forget staff has explained to him he does not have a phone here. Reviewed medications with him and he agrees. Says AH has stopped. -says he will retract his 3 day notice and stay past Deandre 06/03: Continue current regimen and plans. Increase Thorazine 200 mg q.4 hours p.r.n. 06/04 Patient remains floridly psychotic, manic, intrusive to peers and staff, demanding, slamming doors, yelling things; patient coming up to nurses station and saying sexually inappropriate things, told nurse that he hope she gets aide and dyes; came to the bilingual secretary and said I have a pencil and my balls... Patient not sleeping during the night however he says he is. Patient continues to approach database report writer, asking to discharge for a little while to do some activity, rosen a check, go to his job, get some fresh air, and that he will return later. Patient asked database report writer and other staff for 50 cents to buy a cigarette and got loud and angry when it was not given. Male peer approached staff and said due to the intrusiveness, was feeling like striking this patient however was able to be redirected He remains willing to medications. -got a dose of Haldol and Depakote ER 750 mg today; starting scheduled Depakote q.h.s. -patient also willingly retracted his 3 day notice Regarding medication management: Patient got 2nd installment of paliperidone 156; considered restarting paliperidone 6 mg daily for a while however instead, will likely just add Depakote q.h.s. since patient not sleeping and has continued manic symptoms. Will also change his daily Zyprexa dose all to bedtime to help with insomnia. 06/05 remains disorganized in speech, behavior, intrusive and making bizarre, unrelated or sexually inappropriate comments -received INvega sustenna but about 78mg of long acting shy of adequate loading dose (roughly equiv to PO of 12mg daily) -also on Zyprexa 30mg qhs (was prescribed 25mg as home dose) -on home dose of [place]; labs for level pending -Newly Started on depakote 1000mg qhs: labs for level pending will not change med regimen at this time as labs for both mood stabilizers are pending and need more time to assess if effective Plan: CV (retracted 3 day on 06/04) Q 15 minute checks Increased to Depakote ER 1000 mg q.h.s. for continued manic symptoms and not sleeping Received Invega Sustenna 156 mg IM on 05/31 and then another 156 mg on 06/03; will increase monthly dose to 234 mg q.month Continue lithium ER 900 mg q.h.s. -will get labs Change Zyprexa to Zydis and 20 mg q.h.s. since continued insomnia Continue doxepin 50 mg q.h.s. which is a home medication for his insomnia Patient educated on: diagnosis, medication risk/benefits and therapeutic strategies Informed Consent: understands, does not understand and further education needed Reason for continued inpatient stay Substantial Risk for: inability to function Time Spent With Patient Time: Total time managing care of this patient today ____ minutes.
--- NOTE | 2024-06-05 11:01 | PC.NURSE ---
Jay's BP this morning was 149/81. Providers Elijah Stephen MD and FRIEDA Zhou made aware via tiger text.
[2024-06-05] MEDS: Divalproex Sodium 500 MG TABLET.DR PO (11:36)
[2024-06-05 14:35] VITALS: BP 138/86; PULSE 111
[2024-06-05] MEDS: cloNIDine HCL 0.1 MG TABLET PO ×2 (14:37→21:03)
[2024-06-05 20:00] VITALS: BP 148/70; PULSE 107; RESP 18; TEMP 37.2; O2SAT 98
[2024-06-05] MEDS: Zolpidem Tartrate 5 MG TABLET PO (21:03)
[2024-06-05] MEDS: Lithium Carbonate ER 450 MG TABLET.ER 900 MG PO (21:03)
[2024-06-05] MEDS: OLANZapine ODT 10 MG TAB.RAPDIS 30 MG TRANSLINGU (21:03)
[2024-06-05] MEDS: Divalproex Sodium ER 500 MG TAB.ER.24H 1000 MG PO (21:04)
[2024-06-05] MEDS: traZODone HCL 50 MG TABLET PO (21:04)
[2024-06-05] MEDS: Doxepin HCl 25 MG CAPSULE 50 MG PO (21:04)
[2024-06-06] MEDS: Nicotine Polacrilex 2 MG GUM 4 MG BUCCAL ×2 (06:54→13:29)
[2024-06-06] MEDS: hydrOXYzine HCL 25 MG TABLET PO ×2 (06:56→15:39)
[2024-06-06] MEDS: chlorproMAZINE HCl 100 MG TABLET PO ×4 (06:56→20:15)
[2024-06-06 08:30] VITALS: BP 133/68; PULSE 95; RESP 16; TEMP 36.9; O2SAT 95
[2024-06-06 08:31] VITALS: BP 133/68
[2024-06-06] MEDS: cloNIDine HCL 0.1 MG TABLET PO ×2 (08:31→20:13)
--- NOTE | 2024-06-06 08:54 | HO.PSYCHPN ---
Subjective Subjective Date of Service: 06/06/24 Reason For Visit: Schizoaffective disorder Interim History: Remains on one to one. Agitated, inappropriate for the milieu. Inappropriate comments to peers which can be triggering, especially to female peers. No responding to regime as yet. Shouting at times. Medication Compliance: Yes Side effects from medications: No Attending Groups: No Review of Systems Acute medical concerns: No Review of Systems Review of Systems Yes Unobtainable due to mental status Mental Status Exam Mental Status Exam Patient Appearance: Appropriate Patient Orientation: Person Level of Consciousness: Alert Patient Behavior: Talkative Mood Description: Labile Affect Description: Labile Patient Cognition Impaired: Yes Ability to Follow Directions: Poor Speech Pattern: Spontaneous Speech and Loud Hallucinations: Auditory Delusions: Paranoid Ideation, Grandiose and Present Thought Process: Illogical Thought Content: positive for Poverty of Content, positive for Loose Associations and positive for Tangential Depressive Symptoms: Increased Irritability Judgement: Poor Diagnostics Vital Signs (24Hr): Vital Signs - 24 hr 06/05/24 14:35 06/05/24 20:00 06/06/24 08:30 Temperature 98.9 F 98.5 F Pulse Rate 111 H 107 H 95 Respiratory Rate 18 16 Blood Pressure 138/86 148/70 H 133/68 Pulse Oximetry 98 95 Oxygen Delivery Method Room Air Room Air 06/06/24 08:31 Temperature Pulse Rate Respiratory Rate Blood Pressure 133/68 Pulse Oximetry Oxygen Delivery Method BMI result Body Mass Index 31.0 Labs 05/29/24 08:13 06/08/24 11:03 Labs: Laboratory Results - last 48 hr 06/04/24 08:51 BUN 12 Creatinine 0.88 Estim Creat Clear Calc 120.5 Estimated GFR > 60 TSH 3.43 [place] 0.45 L Medications Medications Current Medications Acetaminophen (Acetaminophen 325 Mg Tablet) 650 mg PO Q6H PRN PRN Reason: Headache/Pain Mild Scale (1-3) Last Admin: 06/03/24 20:52 Dose: 650 mg Al Hydroxide/Mg Hydroxide (Magnesium Hydrox/Alum Hydrox 30 Ml Oral.Susp) 30 ml PO Q6H PRN PRN Reason: Heartburn/Nausea Last Admin: 06/04/24 08:42 Dose: 30 ml Chlorpromazine HCl (Chlorpromazine Hcl 100 Mg Tablet) 100 mg PO Q4H PRN PRN Reason: agitation Last Admin: 06/06/24 06:56 Dose: 100 mg Clonidine HCl (Clonidine Hcl 0.1 Mg Tablet) 0.1 mg PO BID HELDER; Protocol Last Admin: 06/06/24 08:31 Dose: 0.1 mg Divalproex Sodium (Divalproex Sodium Er 500 Mg Tab.Er.24h) 1,000 mg PO BEDTIME HELDER Last Admin: 06/05/24 21:04 Dose: 1,000 mg Doxepin HCl (Doxepin Hcl 25 Mg Capsule) 50 mg PO BEDTIME HELDER Last Admin: 06/05/24 21:04 Dose: 50 mg Hydroxyzine HCl (Hydroxyzine Hcl 25 Mg Tablet) 25 mg PO Q6H PRN PRN Reason: Anxiety Last Admin: 06/06/24 06:56 Dose: 25 mg [place] Carbonate ([place] Carbonate Er 450 Mg Tablet.Er) 900 mg PO BEDTIME HELDER Last Admin: 06/05/24 21:03 Dose: 900 mg Magnesium Hydroxide (Milk Of Magnesia 30 Ml Oral.Susp) 30 ml PO DAILY PRN PRN Reason: Constipation Nicotine (Nicotine 21 Mg Patch.Td24) 21 mg TRANSDERMA DAILY PRN PRN Reason: nicotine cravings Nicotine Polacrilex (Nicotine Polacrilex 2 Mg Gum) 4 mg BUCCAL Q2H PRN PRN Reason: Nicotine Cravings Last Admin: 06/06/24 06:54 Dose: 4 mg Olanzapine (Olanzapine 10 Mg Tablet) 10 mg PO TID PRN PRN Reason: agitation Last Admin: 06/05/24 17:36 Dose: 10 mg Olanzapine (Olanzapine Odt 10 Mg Tab.Rapdis) 30 mg TRANSLINGU BEDTIME HELDER Last Admin: 06/05/24 21:03 Dose: 30 mg Trazodone HCl (Trazodone Hcl 50 Mg Tablet) 50 mg PO BEDTIME HELDER Last Admin: 06/05/24 21:04 Dose: 50 mg Zolpidem Tartrate (Zolpidem Tartrate 5 Mg Tablet) 5 mg PO BEDTIME HELDER Last Admin: 06/05/24 21:03 Dose: 5 mg Zolpidem Tartrate (Zolpidem Tartrate 5 Mg Tablet) 5 mg PO BEDTIME PRN PRN Reason: continued Insomnia Allergies Allergies Allergy/AdvReac Type Severity Reaction Status Date / Time No Known Allergies Allergy Verified 05/27/24 13:53 Assessment & Plan Assessment & Plan (1) Schizoaffective disorder, bipolar type: Status: Acute Code(s): F25.0 - Schizoaffective disorder, bipolar type Plan HPI: Patient is a 39-year-old male with history of schizoaffective disorder bipolar type, history of polysubstance abuse who presents for disorganized behavior. Patient is a poor historian, initially mumbling it is difficult to understand him. ED/care team reports that patient was disorganized at the [facility], police detained him for shoplifting but instead brought him to the hospital. In the ED, patient was making disorganized, delusional and sexually inappropriate comments such as someone tried to kill me...hang my black ass...Jellyen is an alien...they said i was shoplifting but i wasn't...[facility] blew up....i'm a virgin, never had sex...just think of hard horney pussy... On the unit, patient got irritable, was yelling and demanding to be discharged. He did get into brief verbal altercation with a peer and may have thrown a banana peel at her. Verbally, Patient did clear up a bit and though still mumbling, was talking a little more; he seemed cooperative but remained vague and disorganized when talking about psychiatric illness or events leading up to this admission. He initially told automobile and property underwriter he wants to discharge today because he has to pick his daughter up at 16:30; then he said he needs to discharge because he asked to go to his job this afternoon... He remained on a Section 12 B, However he accepted that he will not be discharging today and he was amenable to restarting medication. He denied drinking any alcohol (and UDS negative). Redipper approached him later and he was a little more open and said that has than hearing voices that have been upsetting him; he also has been very worried about people coming after him and says he wants medication to help him with the symptoms... He is not sure if he got his Invega Sustenna shot at his last admission. Patient's sister talked with social sciences department chair who reports that patient has been off meds since 05/08 (following discharge from psych admission at [facility]); says he's not engaging with VNA and this past week was verbally aggressive to VNA; he's been making delusional comments saying he's being attacked and threatened with a gun and recently when his sister visited he had barricaded the door with trash, needing the police to get the door open. She says he does not have a daughter. Formulation/clinical reasoning: Patient has a diagnosis of schizoaffective disorder and seems to have quickly decompensated after going off medications. It is not clear when he last had his Invega Sustenna shot although it is prescribed at 156 mg which is likely too low. He is amenable to getting back on medications including Zyprexa which is restarted now but a slightly lower dose. Patient was also on lithium and doxepin at last hospitalization however automobile and property underwriter has not restarted these, as it is not clear if patient is adherent or organized enough in the community to be on a medication such as lithium that requires monitoring. Will continue to get collateral Hospital course: 05/31 Patient remains quite disorganized in both speech and behavior. Patient repeatedly comes up to automobile and property underwriter saying that he needs to go home, do some task and then he will come back to the hospital later on. Each time automobile and property underwriter explains that this is not possible but 5 minutes later he comes up and asks again. He says he needs to go back to his apartment because he has a VNA for his diabetic friend... Or that he has to go turkey picker his check... Patient tells automobile and property underwriter he is a good cook and his friend is a better cook and to give him a chance... Patient agreed to restarting lithium. Redipper discussed lithium which he agreed to restart but patient said he was up all night taking the initiative and getting himself on lithium... Said he saw a peer stealing something and smoking crack Patient said he has been up all night -discussed medication patient agrees to get back on Invega Sustenna, lithium, Zyprexa, doxepin -sign CV and then a 3 day 06/01 Patient remains disorganized in speech and behavior however he has become more cooperative and with much less inappropriate remarks. Still comes up and asks throughout the day to leave the hospital saying he will come back later, saying he needs fresh air, needs to get a check or other things. Each time he accepts that this is not possible but still lacks. Patient continues to ask to get phone numbers off of his phone and was irritated that this did not happen sooner however has continued to forget staff has explained to him he does not have a phone here. Reviewed medications with him and he agrees. Says AH has stopped. -says he will retract his 3 day notice and stay past Grandin 06/03: Continue current regimen and plans. Increase Thorazine 200 mg q.4 hours p.r.n. 06/04 Patient remains floridly psychotic, manic, intrusive to peers and staff, demanding, slamming doors, yelling things; patient coming up to nurses station and saying sexually inappropriate things, told nurse that he hope she gets aide and dyes; came to the payroll secretary and said I have a pencil and my balls... Patient not sleeping during the night however he says he is. Patient continues to approach automobile and property underwriter, asking to discharge for a little while to do some activity, rosen a check, go to his job, get some fresh air, and that he will return later. Patient asked automobile and property underwriter and other staff for 50 cents to buy a cigarette and got loud and angry when it was not given. Male peer approached staff and said due to the intrusiveness, was feeling like striking this patient however was able to be redirected He remains willing to medications. -got a dose of Haldol and Depakote ER 750 mg today; starting scheduled Depakote q.h.s. -patient also willingly retracted his 3 day notice 06/06/24 Chlorpromazine 100 mg po tid trial for 24 hours to assess sx mgt efficacy. Regarding medication management: Patient got 2nd installment of paliperidone 156; considered restarting paliperidone 6 mg daily for a while however instead, will likely just add Depakote q.h.s. since patient not sleeping and has continued manic symptoms. Will also change his daily Zyprexa dose all to bedtime to help with insomnia. Plan: CV (retracted 3 day on 06/04) Q 15 minute checks Will start Depakote ER 500 mg q.h.s. for continued manic symptoms and not sleeping Received Invega Sustenna 156 mg IM on 05/31 and then another 156 mg on 06/03; will increase monthly dose to 234 mg q.month Continue lithium ER 900 mg q.h.s. -will get labs Change Zyprexa to Zydis and 20 mg q.h.s. since continued insomnia Continue doxepin 50 mg q.h.s. which is a home medication for his insomnia Reason for continued inpatient stay Substantial Risk for: rapid decompensation Time Spent With Patient Time: Total time managing care of this patient today ____ minutes.
[2024-06-06] MEDS: Nicotine 21 MG PATCH.TD24 TRANSDERMA (13:28)
[2024-06-06] MEDS: OLANZapine 10 MG TABLET PO ×2 (14:03→17:07)
[2024-06-06 20:00] VITALS: BP 142/60; PULSE 106; TEMP 37.1; O2SAT 98
[2024-06-06] MEDS: Divalproex Sodium ER 500 MG TAB.ER.24H 1000 MG PO (20:12)
[2024-06-06 20:13] VITALS: BP 142/60
[2024-06-06] MEDS: Lithium Carbonate ER 450 MG TABLET.ER 900 MG PO (20:13)
[2024-06-06] MEDS: Zolpidem Tartrate 5 MG TABLET PO (22:50)
[2024-06-06] MEDS: Doxepin HCl 25 MG CAPSULE 50 MG PO (22:50)
[2024-06-06] MEDS: OLANZapine ODT 10 MG TAB.RAPDIS 30 MG TRANSLINGU (22:51)
[2024-06-06] MEDS: traZODone HCL 50 MG TABLET PO (22:51)
[2024-06-07 07:00] VITALS: BMI 33.7
[2024-06-07] MEDS: OLANZapine 10 MG TABLET PO (07:13)
[2024-06-07 08:22] VITALS: BP 136/65
[2024-06-07] MEDS: chlorproMAZINE HCl 100 MG TABLET PO ×3 (08:22→16:12)
[2024-06-07] MEDS: cloNIDine HCL 0.1 MG TABLET PO ×2 (08:22→20:24)
[2024-06-07 08:26] VITALS: BP 136/65; PULSE 84; RESP 18; TEMP 36.8; O2SAT 100
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
[2024-06-07] MEDS: Nicotine 21 MG PATCH.TD24 TRANSDERMA (10:18)
[2024-06-07] MEDS: hydrOXYzine HCL 25 MG TABLET PO ×2 (10:19→16:13)
[2024-06-07] MEDS: Nicotine Polacrilex 2 MG GUM 4 MG BUCCAL ×3 (16:12→21:50)
[2024-06-07 19:45] VITALS: BP 132/79; PULSE 96; RESP 14; TEMP 37.6; O2SAT 96
[2024-06-07] MEDS: Doxepin HCl 25 MG CAPSULE 50 MG PO (21:50)
[2024-06-07] MEDS: Lithium Carbonate ER 450 MG TABLET.ER 900 MG PO (21:50)
[2024-06-07] MEDS: Zolpidem Tartrate 5 MG TABLET PO (21:51)
[2024-06-07] MEDS: Benztropine Mesylate 1 MG TABLET PO (21:51)
[2024-06-07] MEDS: Divalproex Sodium ER 500 MG TAB.ER.24H 1000 MG PO (21:51)
[2024-06-07] MEDS: OLANZapine ODT 10 MG TAB.RAPDIS 30 MG TRANSLINGU (21:51)
[2024-06-07] MEDS: traZODone HCL 50 MG TABLET PO (21:51)
[2024-06-08] MEDS: Nicotine Polacrilex 2 MG GUM 4 MG BUCCAL ×3 (04:51→15:37)
[2024-06-08 08:00] VITALS: BP 144/78; PULSE 86; RESP 16; TEMP 36.8; O2SAT 99
[2024-06-08] MEDS: chlorproMAZINE HCl 100 MG TABLET PO ×2 (08:15→15:37)
[2024-06-08] MEDS: cloNIDine HCL 0.1 MG TABLET PO ×2 (08:15→21:23)
[2024-06-08] MEDS: Benztropine Mesylate 1 MG TABLET PO ×2 (08:15→21:23)
[2024-06-08] MEDS: Nicotine 21 MG PATCH.TD24 TRANSDERMA (10:27)
[2024-06-08 11:20] LABS: Lithium 0.48 mmol/L (0.60-1.20)
[2024-06-08 11:28] LABS: Valproate 48.9 mcg/mL (50.0-100.0)
[2024-06-08 11:34] LABS: Ammonia 52 umol/L (13-55)
[2024-06-08 11:35] LABS: Alanine Aminotransferase 35 U/L (0-40); Albumin Level 4.1 g/dL (3.5-5.0); Alkaline Phosphatase 109 U/L (39-117); Aspartate Amino Transferase 21 U/L (5-37); Bilirubin Direct 0.1 mg/dL (0.0-0.5); Bilirubin Total 0.3 mg/dL (0.0-1.0); Blood Urea Nitrogen 11 mg/dL (9-16); Creatinine Clr Calc Pharmacy 129.8; Estimated Glomerular Filt Rate > 60; Total Protein 7.6 g/dL (6.5-8.0)
[2024-06-08 11:49] LABS: TSH reflex Free T4 2.74 uIU/mL (0.32-4.0)
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
[2024-06-08] MEDS: Paliperidone ER 6 MG TAB.ER.24 PO ×2 (13:06→21:22)
[2024-06-08] MEDS: hydrOXYzine HCL 25 MG TABLET PO (15:37)
[2024-06-08 20:00] VITALS: BP 136/65; PULSE 114; RESP 16; TEMP 36.4; O2SAT 98
[2024-06-08] MEDS: OLANZapine ODT 10 MG TAB.RAPDIS 30 MG TRANSLINGU (21:21)
[2024-06-08] MEDS: Doxepin HCl 25 MG CAPSULE 50 MG PO (21:21)
[2024-06-08] MEDS: Lithium Carbonate ER 450 MG TABLET.ER 900 MG PO (21:22)
[2024-06-08] MEDS: Divalproex Sodium ER 500 MG TAB.ER.24H 1000 MG PO (21:22)
[2024-06-08] MEDS: Zolpidem Tartrate 5 MG TABLET PO (21:23)
[2024-06-08] MEDS: traZODone HCL 50 MG TABLET PO (21:23)
[2024-06-09 07:59] VITALS: BP 179/98; PULSE 98; TEMP 36.8; O2SAT 98
[2024-06-09 09:06] VITALS: BP 179/98
[2024-06-09] MEDS: Paliperidone ER 6 MG TAB.ER.24 PO ×2 (09:06→21:11)
[2024-06-09] MEDS: cloNIDine HCL 0.1 MG TABLET PO ×2 (09:06→21:11)
[2024-06-09] MEDS: Benztropine Mesylate 1 MG TABLET PO ×2 (09:07→21:11)
[2024-06-09] MEDS: Nicotine 21 MG PATCH.TD24 TRANSDERMA (10:06)
[2024-06-09] MEDS: Nicotine Polacrilex 2 MG GUM 4 MG BUCCAL ×3 (11:10→20:54)
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
[2024-06-09] MEDS: chlorproMAZINE HCl 100 MG TABLET PO (17:12)
[2024-06-09 19:51] VITALS: BP 141/80; PULSE 104; RESP 20; TEMP 36.9; O2SAT 98
[2024-06-09] MEDS: Divalproex Sodium ER 500 MG TAB.ER.24H 1000 MG PO (21:10)
[2024-06-09] MEDS: Zolpidem Tartrate 5 MG TABLET PO (21:10)
[2024-06-09] MEDS: traZODone HCL 50 MG TABLET PO (21:11)
[2024-06-09] MEDS: Doxepin HCl 25 MG CAPSULE 50 MG PO (21:11)
[2024-06-09] MEDS: OLANZapine ODT 10 MG TAB.RAPDIS 30 MG TRANSLINGU (21:11)
[2024-06-09] MEDS: Lithium Carbonate ER 450 MG TABLET.ER 900 MG PO (21:11)
[2024-06-10] MEDS: OLANZapine 10 MG TABLET PO (06:15)
[2024-06-10 08:47] VITALS: BP 133/76; PULSE 98; RESP 19; TEMP 37.2; O2SAT 98
[2024-06-10 08:57] VITALS: BP 133/76
[2024-06-10] MEDS: cloNIDine HCL 0.1 MG TABLET PO ×2 (08:57→22:39)
[2024-06-10] MEDS: Paliperidone ER 6 MG TAB.ER.24 PO ×2 (08:57→22:37)
[2024-06-10] MEDS: Benztropine Mesylate 1 MG TABLET PO ×2 (08:57→22:38)
[2024-06-10] MEDS: Nicotine 21 MG PATCH.TD24 TRANSDERMA (11:17)
[2024-06-10] MEDS: Nicotine Polacrilex 2 MG GUM 4 MG BUCCAL ×2 (11:17→18:27)
[2024-06-10] MEDS: hydrOXYzine HCL 25 MG TABLET PO ×2 (11:17→18:27)
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
[2024-06-10 20:00] VITALS: BP 142/66; PULSE 89; TEMP 36.9; O2SAT 98
[2024-06-10] MEDS: Lithium Carbonate ER 450 MG TABLET.ER 900 MG PO (22:36)
[2024-06-10] MEDS: Doxepin HCl 25 MG CAPSULE 50 MG PO (22:36)
[2024-06-10] MEDS: OLANZapine ODT 10 MG TAB.RAPDIS 30 MG TRANSLINGU (22:37)
[2024-06-10] MEDS: Divalproex Sodium ER 500 MG TAB.ER.24H 1000 MG PO (22:38)
[2024-06-10] MEDS: Zolpidem Tartrate 5 MG TABLET PO (22:38)
[2024-06-10 22:39] VITALS: BP 142/66
[2024-06-10] MEDS: traZODone HCL 50 MG TABLET PO (22:39)
[2024-06-11 08:00] VITALS: BP 125/68; PULSE 99; RESP 16; TEMP 36.7; O2SAT 96
[2024-06-11 08:25] VITALS: BP 125/68
[2024-06-11] MEDS: Paliperidone ER 6 MG TAB.ER.24 PO ×2 (08:25→23:12)
[2024-06-11] MEDS: cloNIDine HCL 0.1 MG TABLET PO ×2 (08:25→23:12)
[2024-06-11] MEDS: Benztropine Mesylate 1 MG TABLET PO ×2 (08:26→23:12)
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
[2024-06-11] MEDS: Nicotine Polacrilex 2 MG GUM 4 MG BUCCAL (10:34)
[2024-06-11] MEDS: Nicotine 21 MG PATCH.TD24 TRANSDERMA (10:34)
[2024-06-11 19:47] VITALS: BP 144/65; PULSE 97; RESP 16; TEMP 36.9; O2SAT 97
[2024-06-11] MEDS: Zolpidem Tartrate 5 MG TABLET PO (23:12)
[2024-06-11] MEDS: Divalproex Sodium ER 500 MG TAB.ER.24H 1000 MG PO (23:12)
[2024-06-11] MEDS: traZODone HCL 50 MG TABLET PO (23:12)
[2024-06-11] MEDS: Lithium Carbonate ER 450 MG TABLET.ER 900 MG PO (23:13)
[2024-06-11] MEDS: OLANZapine ODT 10 MG TAB.RAPDIS 30 MG TRANSLINGU (23:13)
[2024-06-11] MEDS: Doxepin HCl 25 MG CAPSULE 50 MG PO (23:13)
[2024-06-11 23:15] VITALS: BP 145/66
[2024-06-12 08:00] VITALS: BP 143/74; PULSE 84; RESP 16; TEMP 37.1; O2SAT 95
[2024-06-12] MEDS: Benztropine Mesylate 1 MG TABLET PO ×2 (08:04→23:01)
[2024-06-12 08:05] VITALS: BP 143/74
[2024-06-12] MEDS: cloNIDine HCL 0.1 MG TABLET PO ×2 (08:05→23:00)
[2024-06-12] MEDS: Paliperidone ER 6 MG TAB.ER.24 PO ×2 (08:05→23:00)
[2024-06-12] MEDS: chlorproMAZINE HCl 100 MG TABLET PO ×2 (08:06→18:17)
[2024-06-12] MEDS: Nicotine 21 MG PATCH.TD24 TRANSDERMA (08:21)
[2024-06-12] MEDS: OLANZapine 10 MG TABLET PO (18:17)
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
[2024-06-12 19:43] VITALS: BP 120/69; PULSE 95; RESP 16; TEMP 36.8; O2SAT 98
[2024-06-12] MEDS: Doxepin HCl 25 MG CAPSULE 50 MG PO (23:00)
[2024-06-12] MEDS: Lithium Carbonate ER 450 MG TABLET.ER 900 MG PO (23:00)
[2024-06-12] MEDS: traZODone HCL 50 MG TABLET PO (23:00)
[2024-06-12] MEDS: OLANZapine ODT 10 MG TAB.RAPDIS 30 MG TRANSLINGU (23:00)
[2024-06-12] MEDS: Divalproex Sodium ER 500 MG TAB.ER.24H 1000 MG PO (23:01)
[2024-06-12] MEDS: Zolpidem Tartrate 5 MG TABLET PO (23:01)
[2024-06-13 07:42] VITALS: BP 147/75; PULSE 88; RESP 18; TEMP 36.4; O2SAT 98
[2024-06-13] MEDS: cloNIDine HCL 0.1 MG TABLET PO ×2 (08:27→22:07)
[2024-06-13] MEDS: Nicotine 21 MG PATCH.TD24 TRANSDERMA (08:27)
[2024-06-13] MEDS: Benztropine Mesylate 1 MG TABLET PO ×2 (08:27→22:07)
[2024-06-13] MEDS: Paliperidone ER 6 MG TAB.ER.24 PO ×2 (08:27→22:10)
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
[2024-06-13] MEDS: Nicotine Polacrilex 2 MG GUM 4 MG BUCCAL (17:31)
[2024-06-13] MEDS: hydrOXYzine HCL 25 MG TABLET PO (17:33)
[2024-06-13] MEDS: OLANZapine 5 MG TABLET PO (17:34)
[2024-06-13 19:56] VITALS: BP 144/90; PULSE 103; RESP 16; TEMP 37.4; O2SAT 94
[2024-06-13] MEDS: Doxepin HCl 25 MG CAPSULE 50 MG PO (22:05)
[2024-06-13] MEDS: Lithium Carbonate ER 450 MG TABLET.ER 900 MG PO (22:06)
[2024-06-13] MEDS: OLANZapine 10 MG TABLET 30 MG PO (22:06)
[2024-06-13 22:07] VITALS: BP 120/82
[2024-06-13] MEDS: Zolpidem Tartrate 5 MG TABLET PO (22:07)
[2024-06-13] MEDS: traZODone HCL 50 MG TABLET PO (22:07)
[2024-06-13] MEDS: Divalproex Sodium ER 500 MG TAB.ER.24H PO (22:08)
[2024-06-14] MEDS: cloNIDine HCL 0.1 MG TABLET PO ×2 (07:58→22:57)
[2024-06-14] MEDS: Benztropine Mesylate 1 MG TABLET PO ×2 (07:59→22:57)
[2024-06-14] MEDS: Paliperidone ER 6 MG TAB.ER.24 PO ×2 (07:59→22:56)
[2024-06-14 08:01] VITALS: BMI 34.5
[2024-06-14 08:20] VITALS: BP 139/74; PULSE 91; RESP 18; TEMP 36.8; O2SAT 98
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
[2024-06-14] MEDS: hydrOXYzine HCL 25 MG TABLET PO ×2 (10:38→17:29)
[2024-06-14] MEDS: OLANZapine 5 MG TABLET PO ×2 (10:38→17:29)
[2024-06-14] MEDS: Nicotine Polacrilex 2 MG GUM 4 MG BUCCAL ×2 (13:27→17:29)
[2024-06-14] MEDS: Nicotine 21 MG PATCH.TD24 TRANSDERMA (13:27)
[2024-06-14 20:00] VITALS: BP 131/76; PULSE 92; TEMP 37.1; O2SAT 97
[2024-06-14] MEDS: Divalproex Sodium ER 500 MG TAB.ER.24H PO (22:51)
[2024-06-14 22:57] VITALS: BP 132/59
[2024-06-14] MEDS: Lithium Carbonate ER 450 MG TABLET.ER 900 MG PO (22:57)
[2024-06-14] MEDS: OLANZapine 10 MG TABLET 30 MG PO (22:58)
[2024-06-14] MEDS: Doxepin HCl 25 MG CAPSULE 50 MG PO (22:58)
[2024-06-15] MEDS: Nicotine Polacrilex 2 MG GUM 4 MG BUCCAL (00:19)
[2024-06-15] MEDS: OLANZapine 5 MG TABLET PO ×2 (07:36→17:26)
[2024-06-15 08:00] VITALS: BP 147/84; PULSE 84; RESP 16; TEMP 36.8; O2SAT 98
[2024-06-15] MEDS: Paliperidone ER 6 MG TAB.ER.24 PO ×2 (09:41→22:16)
[2024-06-15] MEDS: Benztropine Mesylate 1 MG TABLET PO ×2 (09:41→22:17)
[2024-06-15] MEDS: Nicotine 21 MG PATCH.TD24 TRANSDERMA (09:41)
[2024-06-15] MEDS: cloNIDine HCL 0.1 MG TABLET PO ×2 (09:41→22:17)
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
[2024-06-15] MEDS: hydrOXYzine HCL 25 MG TABLET PO (17:26)
[2024-06-15 20:00] VITALS: BP 135/76; PULSE 97; TEMP 37.6; O2SAT 98
--- NOTE | 2024-06-15 22:02 | PC.NURSE ---
At approximately 0, this patient was offered HS medications. At that time, the patient stated I'll take those later, and walked away from this rfp writer.
[2024-06-15] MEDS: Lithium Carbonate ER 450 MG TABLET.ER 900 MG PO (22:16)
[2024-06-15] MEDS: OLANZapine 10 MG TABLET 30 MG PO (22:16)
[2024-06-15 22:17] VITALS: BP 171/98
[2024-06-15] MEDS: Divalproex Sodium ER 250 MG TAB.ER.24H PO (22:17)
--- NOTE | 2024-06-15 22:22 | PC.NURSE ---
Patient accepted all HS medications with the exception of Doxepin; he stated he would return to take those later.
[2024-06-15] MEDS: Doxepin HCl 25 MG CAPSULE 50 MG PO (23:23)
[2024-06-16] MEDS: Magnesium Hydrox/Alum Hydrox 30 ML ORAL.SUSP PO (00:02)
[2024-06-16 08:00] VITALS: BP 143/77; PULSE 71; RESP 16; TEMP 36.8; O2SAT 100
[2024-06-16] MEDS: Benztropine Mesylate 1 MG TABLET PO ×2 (08:10→22:02)
[2024-06-16] MEDS: cloNIDine HCL 0.1 MG TABLET PO ×2 (08:10→22:02)
[2024-06-16] MEDS: Paliperidone ER 6 MG TAB.ER.24 PO ×2 (08:11→22:02)
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
[2024-06-16] MEDS: Nicotine 21 MG PATCH.TD24 TRANSDERMA (10:12)
[2024-06-16] MEDS: Nicotine Polacrilex 2 MG GUM 4 MG BUCCAL ×2 (10:12→19:29)
[2024-06-16] MEDS: hydrOXYzine HCL 25 MG TABLET PO ×2 (13:15→19:29)
[2024-06-16] MEDS: OLANZapine 5 MG TABLET PO ×2 (13:15→19:29)
[2024-06-16 20:00] VITALS: BP 139/69; PULSE 78; TEMP 36.9; O2SAT 99
[2024-06-16] MEDS: Doxepin HCl 25 MG CAPSULE 50 MG PO (22:01)
[2024-06-16] MEDS: Divalproex Sodium ER 250 MG TAB.ER.24H PO (22:02)
[2024-06-16] MEDS: OLANZapine 10 MG TABLET 30 MG PO (22:02)
[2024-06-16] MEDS: Lithium Carbonate ER 450 MG TABLET.ER 900 MG PO (22:02)
[2024-06-17] MEDS: OLANZapine 5 MG TABLET PO ×3 (07:40→21:05)
[2024-06-17] MEDS: Benztropine Mesylate 1 MG TABLET PO ×2 (08:16→21:52)
[2024-06-17] MEDS: Paliperidone ER 6 MG TAB.ER.24 PO ×2 (08:16→21:52)
[2024-06-17] MEDS: cloNIDine HCL 0.1 MG TABLET PO ×2 (08:16→21:52)
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
[2024-06-17 08:37] VITALS: BP 126/62; PULSE 74; RESP 16; TEMP 36.6; O2SAT 99
[2024-06-17] MEDS: hydrOXYzine HCL 25 MG TABLET PO (15:22)
[2024-06-17 20:00] VITALS: BP 163/78; PULSE 91; RESP 18; TEMP 36.7; O2SAT 98
[2024-06-17] MEDS: OLANZapine 10 MG TABLET 30 MG PO (21:52)
[2024-06-17] MEDS: Lithium Carbonate ER 450 MG TABLET.ER 900 MG PO (21:52)
[2024-06-17] MEDS: Divalproex Sodium ER 250 MG TAB.ER.24H PO (21:53)
[2024-06-17] MEDS: Doxepin HCl 25 MG CAPSULE 50 MG PO (21:53)
[2024-06-17] MEDS: Zolpidem Tartrate 5 MG TABLET PO (23:54)
[2024-06-18 08:00] VITALS: BP 132/77; PULSE 79; RESP 15; TEMP 36.3; O2SAT 99
[2024-06-18] MEDS: Nicotine Polacrilex 2 MG GUM 4 MG BUCCAL (08:09)
[2024-06-18 08:56] VITALS: BP 132/77
[2024-06-18] MEDS: Paliperidone ER 6 MG TAB.ER.24 PO ×2 (08:56→22:15)
[2024-06-18] MEDS: cloNIDine HCL 0.1 MG TABLET PO ×2 (08:56→22:17)
[2024-06-18] MEDS: Benztropine Mesylate 1 MG TABLET PO ×2 (08:56→22:16)
[2024-06-18] MEDS: Nicotine 21 MG PATCH.TD24 TRANSDERMA (09:33)
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
[2024-06-18] MEDS: hydrOXYzine HCL 25 MG TABLET PO (13:36)
[2024-06-18] MEDS: OLANZapine 5 MG TABLET PO (13:36)
[2024-06-18 20:00] VITALS: BP 139/85; PULSE 99; TEMP 36.9; O2SAT 97
[2024-06-18 22:00] VITALS: BP 134/65; PULSE 75; TEMP 36.8
[2024-06-18] MEDS: Divalproex Sodium ER 500 MG TAB.ER.24H 1500 MG PO (22:15)
[2024-06-18] MEDS: OLANZapine 10 MG TABLET 30 MG PO (22:16)
[2024-06-18] MEDS: Lithium Carbonate ER 450 MG TABLET.ER 900 MG PO (22:16)
[2024-06-18] MEDS: Doxepin HCl 25 MG CAPSULE 50 MG PO (22:17)
[2024-06-18] MEDS: Zolpidem Tartrate 5 MG TABLET PO (23:24)
[2024-06-18] MEDS: traZODone HCL 50 MG TABLET PO (23:24)
[2024-06-19] MEDS: Paliperidone ER 6 MG TAB.ER.24 PO ×2 (09:17→21:28)
[2024-06-19] MEDS: Benztropine Mesylate 1 MG TABLET PO ×2 (09:17→21:28)
[2024-06-19 09:18] VITALS: BP 121/79
[2024-06-19] MEDS: cloNIDine HCL 0.1 MG TABLET PO ×2 (09:18→23:41)
[2024-06-19 09:21] VITALS: BP 121/73; PULSE 88; RESP 18; TEMP 36.6; O2SAT 98
[2024-06-19] MEDS: Nicotine 21 MG PATCH.TD24 TRANSDERMA (15:58)
[2024-06-19] MEDS: Nicotine Polacrilex 2 MG GUM 4 MG BUCCAL (15:59)
[2024-06-19] MEDS: hydrOXYzine HCL 25 MG TABLET PO (16:43)
[2024-06-19] MEDS: OLANZapine 5 MG TABLET PO (16:43)
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
[2024-06-19 19:35] VITALS: BP 156/70; PULSE 90; RESP 16; TEMP 36.4; O2SAT 98
[2024-06-19] MEDS: Lithium Carbonate ER 450 MG TABLET.ER 900 MG PO (21:28)
[2024-06-19] MEDS: Divalproex Sodium ER 500 MG TAB.ER.24H 1500 MG PO (21:28)
[2024-06-19] MEDS: Doxepin HCl 25 MG CAPSULE 50 MG PO (21:28)
[2024-06-19] MEDS: OLANZapine 10 MG TABLET 30 MG PO (21:28)
[2024-06-19] MEDS: traZODone HCL 50 MG TABLET PO (23:41)
[2024-06-20 08:47] VITALS: BP 134/82; PULSE 89; RESP 16; TEMP 36.9; O2SAT 98
[2024-06-20 09:02] VITALS: BP 148/76
[2024-06-20] MEDS: Benztropine Mesylate 1 MG TABLET PO ×2 (09:02→21:33)
[2024-06-20] MEDS: Paliperidone ER 6 MG TAB.ER.24 PO ×2 (09:02→21:59)
[2024-06-20] MEDS: cloNIDine HCL 0.1 MG TABLET PO ×2 (09:02→21:33)
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
[2024-06-20] MEDS: OLANZapine 5 MG TABLET PO ×2 (12:57→19:13)
[2024-06-20] MEDS: hydrOXYzine HCL 25 MG TABLET PO ×2 (12:57→19:12)
[2024-06-20] MEDS: Nicotine Polacrilex 2 MG GUM 4 MG BUCCAL (19:12)
[2024-06-20 20:00] VITALS: BP 142/87; PULSE 98; RESP 16; TEMP 36.9; O2SAT 98
[2024-06-20] MEDS: Lithium Carbonate ER 450 MG TABLET.ER 900 MG PO (21:31)
[2024-06-20] MEDS: Divalproex Sodium ER 500 MG TAB.ER.24H 1500 MG PO (21:31)
[2024-06-20] MEDS: OLANZapine 10 MG TABLET 30 MG PO (21:32)
[2024-06-20] MEDS: Doxepin HCl 25 MG CAPSULE 50 MG PO (21:32)
[2024-06-21 07:00] VITALS: BMI 34.9
[2024-06-21 09:03] LABS: Ammonia 68 umol/L (13-55)
[2024-06-21 09:06] LABS: Valproate 64.8 mcg/mL (50.0-100.0)
[2024-06-21 09:07] LABS: Alanine Aminotransferase 29 U/L (0-40); Albumin Level 4.1 g/dL (3.5-5.0); Alkaline Phosphatase 110 U/L (39-117); Aspartate Amino Transferase 30 U/L (5-37); Bilirubin Direct < 0.2 mg/dL (0.0-0.5); Bilirubin Total 0.2 mg/dL (0.0-1.0); Total Protein 7.4 g/dL (6.5-8.0)
[2024-06-21 09:38] VITALS: BP 148/88; PULSE 72; RESP 16; TEMP 37; O2SAT 98
[2024-06-21 09:47] VITALS: BP 148/88
[2024-06-21] MEDS: Paliperidone ER 6 MG TAB.ER.24 PO ×2 (09:47→21:33)
[2024-06-21] MEDS: cloNIDine HCL 0.1 MG TABLET PO ×2 (09:47→21:34)
[2024-06-21] MEDS: Benztropine Mesylate 1 MG TABLET PO ×2 (09:47→21:34)
[2024-06-21] MEDS: hydrOXYzine HCL 25 MG TABLET PO (16:01)
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
[2024-06-21 20:00] VITALS: BP 144/73; PULSE 85; TEMP 36.5; O2SAT 99
[2024-06-21] MEDS: OLANZapine 10 MG TABLET 30 MG PO (21:33)
[2024-06-21] MEDS: Doxepin HCl 25 MG CAPSULE 50 MG PO (21:33)
[2024-06-21] MEDS: Zolpidem Tartrate 5 MG TABLET PO (21:34)
[2024-06-21] MEDS: Lithium Carbonate ER 450 MG TABLET.ER 900 MG PO (21:34)
[2024-06-21] MEDS: Divalproex Sodium ER 500 MG TAB.ER.24H 1000 MG PO (21:34)
[2024-06-21] MEDS: traZODone HCL 50 MG TABLET PO (23:08)
[2024-06-22 08:00] VITALS: BP 122/78; PULSE 99; RESP 18; TEMP 36.1; O2SAT 100
[2024-06-22] MEDS: cloNIDine HCL 0.1 MG TABLET PO ×2 (08:53→21:30)
[2024-06-22] MEDS: Benztropine Mesylate 1 MG TABLET PO ×2 (08:53→21:30)
[2024-06-22] MEDS: Paliperidone ER 6 MG TAB.ER.24 PO ×2 (08:53→21:30)
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
[2024-06-22 20:00] VITALS: BP 145/73; PULSE 88; RESP 16; TEMP 36.6; O2SAT 100
[2024-06-22] MEDS: Divalproex Sodium ER 500 MG TAB.ER.24H 1500 MG PO (21:30)
[2024-06-22] MEDS: Doxepin HCl 25 MG CAPSULE 50 MG PO (21:30)
[2024-06-22] MEDS: OLANZapine 10 MG TABLET 30 MG PO (21:30)
[2024-06-22] MEDS: Lithium Carbonate ER 450 MG TABLET.ER 900 MG PO (21:30)
[2024-06-22] MEDS: levOCARNitine Oral Sol 1,000 MG/10 ML UD Cup 330 MG PO (21:33)
[2024-06-22] MEDS: traZODone HCL 50 MG TABLET PO (23:45)
[2024-06-22] MEDS: Zolpidem Tartrate 5 MG TABLET PO (23:45)
[2024-06-23 07:53] VITALS: BP 137/67; RESP 18; TEMP 36.3; O2SAT 97
[2024-06-23] MEDS: cloNIDine HCL 0.1 MG TABLET PO ×2 (08:13→22:54)
[2024-06-23] MEDS: OLANZapine 5 MG TABLET PO ×2 (08:13→18:25)
[2024-06-23] MEDS: Benztropine Mesylate 1 MG TABLET PO ×2 (08:14→22:53)
[2024-06-23] MEDS: Paliperidone ER 6 MG TAB.ER.24 PO ×2 (08:14→22:53)
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
[2024-06-23] MEDS: levOCARNitine Oral Sol 1,000 MG/10 ML UD Cup 330 MG PO (14:55)
[2024-06-23] MEDS: hydrOXYzine HCL 25 MG TABLET PO (18:25)
[2024-06-23 19:52] VITALS: BP 141/67; PULSE 81; RESP 16; TEMP 36.6; O2SAT 99
[2024-06-23] MEDS: OLANZapine 10 MG TABLET 30 MG PO (22:53)
[2024-06-23] MEDS: Divalproex Sodium ER 500 MG TAB.ER.24H 1500 MG PO (22:53)
[2024-06-23] MEDS: Lithium Carbonate ER 450 MG TABLET.ER 900 MG PO (22:53)
[2024-06-23] MEDS: Doxepin HCl 25 MG CAPSULE 50 MG PO (22:54)
[2024-06-24] MEDS: traZODone HCL 50 MG TABLET PO ×2 (00:08→23:32)
[2024-06-24] MEDS: Zolpidem Tartrate 5 MG TABLET PO (00:08)
[2024-06-24 07:35] VITALS: BP 136/78; PULSE 88; TEMP 36.8; O2SAT 97
[2024-06-24] MEDS: Paliperidone ER 6 MG TAB.ER.24 PO ×2 (08:38→21:19)
[2024-06-24] MEDS: Benztropine Mesylate 1 MG TABLET PO ×2 (08:38→21:19)
[2024-06-24] MEDS: cloNIDine HCL 0.1 MG TABLET PO ×2 (08:38→21:19)
[2024-06-24] MEDS: levOCARNitine Oral Sol 1,000 MG/10 ML UD Cup 330 MG PO ×2 (08:39→23:32)
[2024-06-24] MEDS: hydrOXYzine HCL 25 MG TABLET PO (11:09)
[2024-06-24] MEDS: OLANZapine 5 MG TABLET PO (11:09)
[2024-06-24] MEDS: Nicotine Polacrilex 2 MG GUM 4 MG BUCCAL (15:19)
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
[2024-06-24 20:00] VITALS: BP 167/97; PULSE 88; RESP 16; TEMP 36.7; O2SAT 99
[2024-06-24] MEDS: Divalproex Sodium ER 500 MG TAB.ER.24H 1500 MG PO (21:19)
[2024-06-24] MEDS: OLANZapine 10 MG TABLET 30 MG PO (21:19)
[2024-06-24] MEDS: Lithium Carbonate ER 450 MG TABLET.ER 900 MG PO (21:19)
[2024-06-24] MEDS: Doxepin HCl 25 MG CAPSULE 50 MG PO (21:19)
[2024-06-25 08:00] VITALS: BP 135/73; PULSE 88; RESP 16; TEMP 36.4; O2SAT 97
[2024-06-25] MEDS: Paliperidone ER 6 MG TAB.ER.24 PO ×2 (08:53→20:19)
[2024-06-25] MEDS: cloNIDine HCL 0.1 MG TABLET PO ×2 (08:53→20:18)
[2024-06-25] MEDS: Benztropine Mesylate 1 MG TABLET PO ×2 (08:53→20:18)
[2024-06-25] MEDS: levOCARNitine Oral Sol 1,000 MG/10 ML UD Cup 330 MG PO ×2 (08:53→20:19)
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
[2024-06-25 20:00] VITALS: BP 137/70; PULSE 86; RESP 16; TEMP 36.6; O2SAT 98
[2024-06-25] MEDS: Divalproex Sodium ER 500 MG TAB.ER.24H 1500 MG PO (20:18)
[2024-06-25] MEDS: Doxepin HCl 25 MG CAPSULE 50 MG PO (20:18)
[2024-06-25] MEDS: hydrOXYzine HCL 25 MG TABLET PO (20:18)
[2024-06-25] MEDS: Lithium Carbonate ER 450 MG TABLET.ER 900 MG PO (20:18)
[2024-06-25] MEDS: Nicotine Polacrilex 2 MG GUM 4 MG BUCCAL (20:19)
[2024-06-25] MEDS: OLANZapine 10 MG TABLET 30 MG PO (20:19)
[2024-06-25 21:08] LABS: Estimated Glomerular Filt Rate > 60
[2024-06-25] MEDS: traZODone HCL 50 MG TABLET PO (23:52)
[2024-06-25] MEDS: Zolpidem Tartrate 5 MG TABLET PO (23:52)
[2024-06-26 08:00] VITALS: BP 111/54; PULSE 65; RESP 18; TEMP 36.1; O2SAT 96
[2024-06-26 08:14] VITALS: BP 146/74; PULSE 84
[2024-06-26] MEDS: levOCARNitine Oral Sol 1,000 MG/10 ML UD Cup 330 MG PO ×2 (08:15→23:21)
[2024-06-26] MEDS: cloNIDine HCL 0.1 MG TABLET PO ×2 (08:15→20:57)
[2024-06-26] MEDS: Benztropine Mesylate 1 MG TABLET PO ×2 (08:15→20:58)
[2024-06-26] MEDS: Paliperidone ER 6 MG TAB.ER.24 PO ×2 (08:15→20:57)
[2024-06-26 08:28] LABS: Ammonia 64 umol/L (13-55)
[2024-06-26 08:36] LABS: Alanine Aminotransferase 33 U/L (0-40); Albumin Level 4.1 g/dL (3.5-5.0); Alkaline Phosphatase 109 U/L (39-117); Aspartate Amino Transferase 24 U/L (5-37); Bilirubin Direct 0.1 mg/dL (0.0-0.5); Bilirubin Total 0.3 mg/dL (0.0-1.0); Total Protein 7.7 g/dL (6.5-8.0)
[2024-06-26 08:45] LABS: Valproate 73.3 mcg/mL (50.0-100.0)
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
[2024-06-26] MEDS: OLANZapine 5 MG TABLET PO (14:25)
[2024-06-26] MEDS: hydrOXYzine HCL 25 MG TABLET PO (14:25)
[2024-06-26] MEDS: Nicotine Polacrilex 2 MG GUM 4 MG BUCCAL ×2 (14:25→17:10)
[2024-06-26 20:00] VITALS: BP 153/82; PULSE 94; RESP 18; TEMP 36.7; O2SAT 99
[2024-06-26] MEDS: Divalproex Sodium ER 500 MG TAB.ER.24H 1500 MG PO (20:56)
[2024-06-26] MEDS: Lithium Carbonate ER 450 MG TABLET.ER 900 MG PO (20:57)
[2024-06-26] MEDS: Doxepin HCl 25 MG CAPSULE 50 MG PO (20:57)
[2024-06-26] MEDS: OLANZapine 10 MG TABLET 30 MG PO (20:57)
[2024-06-27 08:28] VITALS: BP 140/70; PULSE 72; TEMP 36.6; O2SAT 99
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
[2024-06-27] MEDS: Paliperidone ER 6 MG TAB.ER.24 PO (09:15)
[2024-06-27] MEDS: Benztropine Mesylate 1 MG TABLET PO (09:15)
[2024-06-27] MEDS: cloNIDine HCL 0.1 MG TABLET PO (09:15)
[2024-06-27] MEDS: Naloxone HCl Nasal TAKE HOME 4 MG SPRAY 8 MG NOSTRILALT (09:15)
[2024-06-27] MEDS: Paliperidone Palmitate 234 MG/1.5 ML SYRINGE IM (10:11)
[2024-06-27] MEDS: levOCARNitine Oral Sol 1,000 MG/10 ML UD Cup 330 MG PO (10:11)
== END 2024-06-27 11:50 | disposition home or self-care (01) | DRG 885 ==
LOC: HO.ED 05-29 07:56 → HO.PM5 05-29 12:15
PROVIDERS: Nurse Practitioner Family; Admitting Provider Clinical Nurse Specialist Psychiatric/Mental Health, Adult; Emergency Provider Emergency Medicine Emergency Medical Services; Visit Provider Psychiatry & Neurology Psychiatry
DX: F25.0 Schizoaffective disorder, bipolar type (principal); F17.210 Nicotine dependence, cigarettes, uncomplicated; Z71.6 Tobacco abuse counseling; Z23 Encounter for immunization; Z79.899 Other long term (current) drug therapy
CPT/HCPCS: 36415; 80053; 80061; 80076; 80164; 80178; 80307; 81001; 82140; 82565; 82607; 82746; 83036; 83735; 84439; 84443; 84520; 85025; 90656; 93005; 99285; J2426; S9485

== ENCOUNTER → 2024-05-29 08:29 | Outpatient (BNV) | payer MEDICARE, MEDICAID, SELFPAY | PROVIDERS: Admitting Provider Clinical Nurse Specialist Psychiatric/Mental Health, Adult; Emergency Provider Emergency Medicine Emergency Medical Services; Visit Provider Internal Medicine | DX: R94.31 Abnormal electrocardiogram [ECG] [EKG] (principal) | CPT/HCPCS: 93010 ==

== ENCOUNTER → 2024-05-29 11:52 | Outpatient (BNV) | payer MEDICARE, MEDICAID, SELFPAY | PROVIDERS: Admitting Provider Clinical Nurse Specialist Psychiatric/Mental Health, Adult; Emergency Provider Emergency Medicine Emergency Medical Services; Visit Provider Psychiatry & Neurology Psychiatry | DX: F25.0 Schizoaffective disorder, bipolar type (principal) | CPT/HCPCS: 90792; 99231; 99232 ==

== ENCOUNTER 2024-07-10 07:58 | Emergency (ER) | payer MEDICARE, MEDICAID, SELFPAY ==
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
[2024-07-10 08:04] VITALS: BP 146/90; PULSE 75; O2SAT 99
[2024-07-10 08:31] VITALS: BP 150/79; PULSE 76; RESP 16; TEMP 36.9; O2SAT 99; BMI 38.1
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
--- NOTE | 2024-07-10 08:47 | PC.NURSE ---
Pt asks every staff member that walks by for sandwiches, cranberry juice, jello, crackers etc. Pt given several containers of juice, crackers and jello.
--- OUTSIDE RECORDS SUMMARY | 2024-07-10 09:10 | XMS_ITS | Clinical Summary ---
Author Organization [facility] Address [address] [place] [address] Care Team Providers Care Batch Maker Name Role Phone Pcp, No Primary Care Provider Unavailabl e Allergies Active Allergy Reactions Criticality Noted Date Comments Citalopram Sexual Side Effects Low 11/03/2018 Low libido Medications Medication Sig Dispensed Refills Start Date End Date Status Invega Sustenna 234 MG/1.5ML Suspension Prefilled Syringe IM injectionIndications: Schizophrenia, paranoid type ([facility]) Inject 1.5 mL (234 mg total) into the shoulder, thigh, or buttocks every 30 days (once a month). 1.5 mL 12/21/2021 Active Active Problems Problem Noted Date Diagnosed Date Schizophrenia, paranoid type 12/08/2021 Bizarre behavior 12/04/2021 Milagro 12/03/2021 Social History Tobacco Use Types Packs/Day Years Used Date Smoking Tobacco: Every Day Cigarettes Tobacco Cessation:Ready to Q uit: No; Counseling Given: Yes Alcohol Use Standard Drinks/Week Comments Not Currently 0 (1 standard drink = 0.6 oz pur e alcohol) AUDIT-C Answer Date Recorded Q1: How often do you have a drink containing alc ohol? Monthly or less 12/08/2021 Q2: How many drinks containi ng alcohol do you have on a typical day when you are drinking? 1 or 2 12/08/2021 Q3: How often do you have si x or more drinks on one occasion? Less than monthly 12/08/2021 Sex and Gender Information Value Date Recorded Sex Assigned at Not on file Gender Identity Not on file Sexual Orientation Not on file Last Filed Vital Signs Vital Sign Reading Time Taken Comments Blood Pressure 129/74 12/21/2021 6:00 AM EDT Pulse 45 12/21/2021 6:00 AM EDT Temperature 36.6 ??C (97.9 ??F) 12/21/2021 6:00 AM ED T Respiratory Rate 18 12/21/2021 6:00 AM EDT Oxygen Saturation 94% 12/21/2021 6:00 AM EDT Inhaled Oxygen Concentration - - Weight 68.4 kg (150 lb 12.8 oz) 12/08/2021 2:48 PM EDT Height 170.2 cm (5' 7 ) 12/08/2021 2:48 PM EDT Body Mass Index 23.62 12/08/2021 2:48 PM EDT Plan of Treatment Health Maintenance Due Date Last Done Comments Hepatitis C Virus Screening 1985 DTaP/Tdap/Td Vaccines (1 - Tdap) 2004 Hepatitis B Vaccines (1 of 3 - 19+ 3-dose series) 2004 Pneumococcal Vaccine: Pediat july (0-5 Years) and At-Risk Patients (6 to 49 Years) (1 of 2 - PCV) 2004 Influenza Vaccine 01/12/2024 COVID-19 Vaccine (2023-2 5 season) 2024 HIV Screening Completed 01/13/2016 HPV Vaccines Aged Out No longer eligi ble based on patient's age to complete this topic Advance Directives * Full Code (Latest Code Status on File) Date Activated Date Inactivated Comments 12/08/2021 3:00 PM Care Teams Batch Maker Relationship Specialty Start Date End Date Pcp, No PCP - General General Medicine 12/03/21
--- OUTSIDE RECORDS SUMMARY | 2024-07-10 09:11 | XMS_ITS | Clinical Summary ---
Author Organization [facility] Address [address] [place] [address] Phone Care Team Providers Care Supervisor Cooler Service Name Role Phone Angel Resendiz MD Primary Care Provider [phone] Allergies No known active allergies Medications Medication Sig Dispensed Refills Start Date End Date Status lithium (ESKALITH) 450 mg CR tablet Take 1 tablet (450 mg total) by mouth 1 (one) time each day. 10/18/2022 Active melatonin 3 mg tablet Take 1 tablet (3 mg total) by mouth at bedtime as needed for sleep. Active OLANZapine (ZyPREXA) 20 mg tablet Take 1 tablet (20 mg total) by mouth at bedtime. 10/18/2022 Active Active Problems Problem Noted Date Diagnosed Date Auditory hallucinations 04/28/2024 Encounters Date Type Department Care Team Description 04/28/2024 8:14 AM EST - 04/30/2024 11:11 AM EST Emergency [facility] Emergency [address] [place] [address] Auditory hallucinations (Primary Dx); Acute (undifferentiated) schizophrenia (CMS/HCC) Discharge Disposition: Another Health Care Institution Not Defined from Last 3 Months Surgical History Surgery Date Site/Laterality Comments OTHER SURGICAL HISTORY PROCEDURE: DENIES PREVIOUS SURGERY Medical History Medical History Date Comments Schizophrenia (CMS/HCC) DX:Schiz ophrenia (HCC); 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 [employer] Bipolar 1 disorder (CMS/HCC) DX: Bipolar 1 disorder (HCC) HTN (hypertension) DX:HTN (hyper tension) Family History Medical History Relation Name Comments Diabetes Mother Diabetes Sister 1 Relation Name Status Comments Mother Sister 1 Sister 2 Social History Tobacco Use Types Packs/Day Years Used Date Smoking Tobacco: Every Day Cigarettes Smokeless Tobacco: Never Tobacco Cessation:Ready to Q uit: Not Asked; Counseling Given: Not Answered Alcohol Use Standard Drinks/Week Comments No 0 (1 standard drink = 0.6 oz pur e alcohol) Sex and Gender Information Value Date Recorded Sex Assigned at Not on file Gender Identity Not on file Sexual Orientation Not on file Job Start Date Occupation Industry Not on file Not on file Not on file Obstetrics History Last Filed Vital Signs Vital Sign Reading Time Taken Comments Blood Pressure 118/72 04/30/2024 8:48 AM EST Pulse 68 04/30/2024 8:48 AM EST Temperature 36.9 ??C (98.4 ??F) 04/30/2024 8:48 AM ES T Respiratory Rate 18 04/30/2024 8:48 AM EST Oxygen Saturation 99% 04/30/2024 8:48 AM EST Inhaled Oxygen Concentration - - Weight 92.1 kg (203 lb) 04/28/2024 7:46 AM EST Height 170.2 cm (5' 7 ) 04/28/2024 7:46 AM EST Body Mass Index 31.79 04/28/2024 7:46 AM EST Plan of Treatment Health Maintenance Due Date Last Done Comments Pneumococcal Vaccine: Pediat rics (0 to 5 Years) and At-Risk Patients (6 to 64 Years) (1 of 2 - PCV) 1991 Hepatitis B Vaccines (1 of 3 - 19+ 3-dose series) 2004 Cholesterol Screening (Lipid Panel) 05/15/2022 Depression Screening 05/15/2022 HIV Screening 05/15/2022 Hepatitis C Screening 05/15/2022 Medicare Annual Wellness Visit 05/15/2022 Social Influencers of Health Screening 05/15/2022 DTaP,Tdap,and Td Vaccines (2 - Td or Tdap) 09/22/2022 09/22/2012 Hepatitis A Vaccines (2 of 2 - Risk 2-dose series) 08/19/2023 02/18/2023 COVID-19 Vaccine (1 - 2023-2 5 season) 2024 Influenza Vaccine (#1) 2024 Hypertension/CHF/CAD Annual BMP Blood Test 04/28/2025 04/28/2024 HIB Vaccines Aged Out No longer eligi ble based on patient's age to complete this topic HPV Vaccines Aged Out No longer eligi ble based on patient's age to complete this topic IPV Vaccines Aged Out No longer eligi ble based on patient's age to complete this topic MMR Vaccines Aged Out No longer eligi ble based on patient's age to complete this topic Meningococcal ACWY Vaccine Aged Out N o longer eligible based on patient's age to complete this topic RSV Immunization Patients Un carol 20 months Aged Out No longer eligible b ased on patient's age to complete this topic Varicella Vaccines Aged Out No longer eligible based on patient's age to complete this topic Procedures Procedure Name Priority Date/Time Associated Diagnosis Comments RAPID [id number] SCREENING, MOLECULAR STAT 04/28/2024 4:15 PM EST ECG 12-LEAD STAT 04/28/2024 12:13 PM EST METHADONE SCREEN, URINE STAT 04/28/2024 8:14 AM EST PHENCYCLIDINE, URINE STAT 04/28/2024 8:14 AM EST BUPRENORPHINE SCREEN, URINE STAT 04/28/2024 8:14 AM EST DRUG ABUSE SCREEN 8A PANEL, URINE STAT 04/28/2024 8:14 AM EST LITHIUM LEVEL STAT Add-on 04/28/2024 8:13 AM EST CBC WITH AUTO DIFFERENTIAL STAT 04/28/2024 8:13 AM EST SALICYLATE LEVEL STAT 04/28/2024 8:13 AM EST ACETAMINOPHEN LEVEL STAT 04/28/2024 8 :13 AM EST ETHANOL STAT 04/28/2024 8:13 AM EST COMPREHENSIVE METABOLIC PANEL STAT 04/28/2024 8:13 AM EST CBC AND DIFFERENTIAL STAT 04/28/2024 8:13 AM EST ECG ANNOTATED 04/28/2024 from Last 3 Months Results * Rapid [id number], molecular (04/28/2024 4:15 PM EST) Pathologist [facility] SARS-COV-2 Screen Not Detected Not Detected METHOD [id number] 04/28/2024 4:45 PM EST [facility] Swab Both anterior nares / Unknown Non-blood Collection / Unknown 04/28/2024 4:15 PM EST 04/28/2024 4:25 PM EST Anu FLEMING LAB MICROBIOLO GY - GENERAL ORDERABLES [facility] [address] [place] [address], * ECG 12 lead (04/28/2024 12:13 PM EST) [facility] Ventricular Rate ECG 66 BPM GEMUSE Atrial Rate 66 BPM GEMUSE P-R Interval 146 ms GEMUSE QRS Duration 92 ms GEMUSE Q-T Interval 412 ms GEMUSE QTc 431 ms GEMUSE P Wave Baldwin 21 degrees GEMUSE R Baldwin 44 degrees GEMUSE T Baldwin 44 degrees GEMUSE ECG Interpretation Normal sinus rhythm Nonspecific ST abnormality When compared with ECG of 23-FEB-2024 09:40, No significant change was found Confirmed by EZ AKBAR ([id number]) on 04/28/2024 10:57:13 PM GEMUSE 04/28/2024 12:1 3 PM EST 04/28/2024 10:57 PM EST Anu FLEMING ECG ORDERABLES GEMUSE * (ABNORMAL) Drug abuse screen 8a panel, urine (04/28/2024 8:14 AM EST) Pathologist [facility] Amphetamine Screen, Ur Negative Negative LAB CHEMISTRY METHOD 8:47 AM [facility] Comment:Certain OTC medicati ons containing ephedrine, phenylephrine, pseudoephedrine and phenylpropanolamine can cause false positive results. Barbiturate Screen, Ur Negative Negative LAB CHEMISTRY METHOD 4 8:47 AM [facility] Benzodiazepine Screen, Ur Negative Negative LAB CHEMISTRY METHOD 4 8:47 AM [facility] Cocaine Screen, Ur Positive(A ) Negative LAB CHEMISTRY METHOD 4 8:47 AM [facility] Opiate Screen, Ur Negative Negative LAB CHEMISTRY METHOD 4 8:47 AM [facility] Cannabinoid (THC) Screen, Ur Negative Negative LAB CHEMISTRY METHOD 4 8:47 AM [facility] Comment:Specimens from patie nts taking pantoprazole sodium (Protonix) have been shown to produce false positive results. Oxycodone Screen, Ur Negative Negative LAB CHEMISTRY METHOD 4 8:47 AM [facility] Fentanyl, Ur Negative Negative LAB CHEMISTRY METHOD 4 8:47 AM [facility] Urine Urine specimen obtained by clean catch procedure / Unknown Non-blood Collection / Unknown 04/28/2024 8:14 AM EST 04/28/2024 8:18 AM [facility] - 04/28/2024 8:47 AM EST Assay cutoffs: Amphetamines ? 1000 ng/mL Barbiturates ?200 ng/mL Benzodiazepines ?? 200 ng/mL Cocaine ? 300 ng/mL Fentanyl ?1 ng/mL Opiates ? 300 ng/mL Oxycodone ? 100 ng/mL THC ?50 ng/mL Semi-quantitative assay for screening purposes only. Unconfirmed screening result should not be used for non-medical purposes. *ALTERNATE METHOD CONFIRMATION DONE UPON REQUEST ONLY* Altaf Payne Juvenal SAAVEDRA LAB URINE ORDERABLE S Performing Organization Address [facility] Co de Phone Number [facility] [address] [place] [address], * Buprenorphine screen, urine (04/28/2024 8:14 AM EST) Buprenorphine Screen Urine Negative Negative LAB CHEMISTRY METHOD 04/28/2024 8:47 AM EST [facility] Urine Urine specimen obtained by clean catch procedure / Unknown Non-blood Collection / Unknown 04/28/2024 8:14 AM EST 04/28/2024 8:18 AM EST Narrative [facility] - 04/28/2024 8:47 AM EST Assay cutoff 5 ng/mL Semi-quantitative assay for screening purposes only. Unconfirmed screening result should not be used for non-medical purposes. *ALTERNATE METHOD CONFIRMATION DONE UPON REQUEST ONLY* Altaf Elmer Sanford DO LAB URINE ORDERABLE S Performing Organization Address [facility] Co de Phone Number [facility] [address] [place] [address], * Methadone, urine (04/28/2024 8:14 AM EST) [facility] Methadone Screen, Urine Negative Negative LAB CHEMISTRY METHOD 04/28/2024 8:47 AM EST [facility] Comment: Assay cutoff 300 ng/mL Semi-quantitative assay for screening purposes only. Unconfirmed screening result should not be used for non-medical purposes. *ALTERNATE METHOD CONFIRMATION DONE UPON REQUEST ONLY* Urine Urine specimen obtained by clean catch procedure / Unknown Non-blood Collection / Unknown 04/28/2024 8:14 AM EST 04/28/2024 8:18 AM EST Altaf Payne Juvenal SAAVEDRA LAB URINE ORDERABLE S [facility] [address] [place] [address], * Phencyclidine, urine (04/28/2024 8:14 AM EST) Pathologist [facility] PCP Scrn, Ur Negative Negative LAB CHEMISTRY METHOD 04/28/2024 8:47 AM [facility] Comment: Assay cutoff 25 ng/mL Semi-quantitative assay for screening purposes only. Unconfirmed screening result should not be used for non-medical purposes. *ALTERNATE METHOD CONFIRMATION DONE UPON REQUEST ONLY* Urine Urine specimen obtained by clean catch procedure / Unknown Non-blood Collection / Unknown 04/28/2024 8:14 AM EST 04/28/2024 8:18 AM EST Altaf Sanford DO LAB URINE ORDERABLE S Performing Organization Address City/[facility]/ZIP Co de Phone Number [facility] [address] [place] [address], * (ABNORMAL) CBC auto differential (04/28/2024 8:13 AM EST) [facility] WBC 6.8 4.8 - 10.8 K/mcL LAB HEMETOLOGY METHOD 04/28/2024 8:22 AM [facility] RBC 3.80(L) 4.50 - 5.50 M/mcL LAB HEMETOLOGY METHOD 04/28/2024 8:22 AM [facility] Hemoglobin 11.9(L) 13.5 - 17.5 g/dL LAB HEMETOLOGY METHOD 04/28/2024 8:22 AM [facility] Hematocrit 32.9(L) 42.0 - 54.0 % LAB HEMETOLOGY METHOD 04/28/2024 8:22 AM [facility] MCV 85.9 79.0 - 98.0 FL LAB HEMETOLOGY METHOD 04/28/2024 8:22 AM [facility] MCH 31.1 27.0 - 32.0 pcg LAB HEMETOLOGY METHOD 04/28/2024 8:22 AM [facility] MCHC 36.2 32.0 - 37.0 g/dL LAB HEMETOLOGY METHOD 04/28/2024 8:22 AM [facility] RDW 12.8 11.0 - 15.0 % LAB HEMETOLOGY METHOD 04/28/2024 8:22 AM [facility] Platelets 247 130 - 400 K/mcL LAB HEMETOLOGY METHOD 04/28/2024 8:22 AM [facility] MPV 11.6(H) 7.0 - 11.0 FL LAB HEMETOLOGY METHOD 04/28/2024 8:22 AM [facility] NRBC 0.0 <1.0 % LAB HEMETOLOGY METHOD 04/28/2024 8:22 AM [facility] NRBC Absolute 0.00 <0.10 K/mcL LAB HEMETOLOGY METHOD 04/28/2024 8:22 AM [facility] Neutrophils Relative 36.3 % LAB HEMETOLOGY METHOD 04/28/2024 8:22 AM [facility] Lymphocytes Relative 50.4 % LAB HEMETOLOGY METHOD 04/28/2024 8:22 AM [facility] Monocytes Relative 9.3 % LAB HEMETOLOGY METHOD 04/28/2024 8:22 AM [facility] Eosinophils Relative 3.5 % LAB HEMETOLOGY METHOD 04/28/2024 8:22 AM [facility] Basophils Relative 0.4 % LAB HEMETOLOGY METHOD 04/28/2024 8:22 AM [facility] Immature Granulocytes Relative 0.1 % LAB HEMETOLOGY METHOD 04/28/2024 8:22 AM [facility] Neutrophils Absolute 2.47 1.50 - 7.00 K/[facility] LAB HEMETOLOGY METHOD 04/28/2024 8:22 AM EST [facility] Lymphocytes Absolute 3.43 1.00 - 5.00 K/mcL LAB HEMETOLOGY METHOD 04/28/2024 8:22 AM EST [facility] Monocytes Absolute 0.63 0.20 - 1.00 K/[facility] HEMETOLOGY METHOD 04/28/2024 8:22 AM EST [facility] Eosinophils Absolute 0.24 0.00 - 0.50 K/[facility] HEMETOLOGY METHOD 04/28/2024 8:22 AM EST [facility] Basophils Absolute 0.03 0.00 - 0.20 K/[facility] HEMETOLOGY METHOD 04/28/2024 8:22 AM EST [facility] Immature Granulocytes Absolute 0.01 0.00 - 0.03 K/[facility] HEMETOLOGY METHOD 04/28/2024 8:22 AM EST [facility] Blood Venous blood specimen / Unknown Venipuncture / Unknown 04/28/2024 8:13 AM EST 04/28/2024 8:18 AM EST Altaf Sanford DO LAB BLOOD ORDERABLE S [facility] [address] [place] [address], * Ethanol (04/28/2024 8:13 AM EST) Ethanol Level <3 0 - 10 mg/dL LAB CHEMISTRY METHOD 04/28/2024 8:49 AM EST [facility] Blood Venous blood specimen / Unknown Venipuncture / Unknown 04/28/2024 8:13 AM EST 04/28/2024 8:18 AM EST Altaf Sanford DO LAB BLOOD ORDERABLE S [facility] [address] [place] [address], * (ABNORMAL) Acetaminophen level (04/28/2024 8:13 AM EST) Acetaminophen Level 6.3(L) 10.0 - 30.0 mcg/mL LAB CHEMISTRY METHOD 04/28/2024 8:49 AM EST [facility] Blood Venous blood specimen / Unknown Venipuncture / Unknown 04/28/2024 8:13 AM EST 04/28/2024 8:18 AM EST Altaf Sanford DO LAB BLOOD ORDERABLE S Performing Organization Address [facility]/ZIP Co de Phone Number [facility] [address] [place] [address], * Salicylate level (04/28/2024 8:13 AM EST) Salicylate Level 2.1 2.0 - 29.0 mg/dL LAB CHEMISTRY METHOD 04/28/2024 8:49 AM EST [facility] Blood Venous blood specimen / Unknown Venipuncture / Unknown 04/28/2024 8:13 AM EST 04/28/2024 8:18 AM EST Altaf Sanford DO LAB BLOOD ORDERABLE S [facility] [address] [place] [address], * (ABNORMAL) [place] level (04/28/2024 8:13 AM EST) [place] Level <0.2(L) 0.6 - 1.2 mEq/L LAB CHEMISTRY METHOD 04/28/2024 5:53 PM EST [facility] Blood Venous blood specimen / Unknown Venipuncture / Unknown 04/28/2024 8:13 AM EST 04/28/2024 8:18 AM EST Fariba Garcia NP LAB BLOOD ORDERABLES [facility] [address] [place] [address], [place] [phone] * (ABNORMAL) Comprehensive metabolic panel (04/28/2024 8:13 AM EST) Sodium 139 133 - 145 mmol/L LAB CHEMISTRY METHOD 04/28/2024 8:50 AM EST [facility] Potassium 3.1(L) 3.5 - 5.5 mmol/L LAB CHEMISTRY METHOD 04/28/2024 8:50 AM [facility] Chloride 110 96 - 110 mmol/L LAB CHEMISTRY METHOD 04/28/2024 8:50 AM [facility] CO2 23 21 - 32 mmol/L LAB CHEMISTRY METHOD 04/28/2024 8:50 AM [facility] Anion Gap 6 3 - 11 LAB CHEMISTRY METHOD 04/28/2024 8:50 AM [facility] Glucose 97 70 - 100 mg/dL LAB CHEMISTRY METHOD 04/28/2024 8:50 AM [facility] BUN 9 5 - 25 mg/dL LAB CHEMISTRY METHOD 04/28/2024 8:50 AM [facility] Creatinine 0.80 0.70 - 1.30 mg/dL LAB CHEMISTRY METHOD 04/28/2024 8:50 AM [facility] eGFR 116 >=60 mL/min/1. 73m2 LAB CHEMISTRY METHOD 04/28/2024 8:50 AM [facility] Comment:Calculation based on the??Chronic Kidney Disease Epidemiology Collaboration (CKD-EPI) equation refit??without adjustment for race. BUN/Creatinine Ratio 11.3 LAB CHEMISTRY METHOD 04/28/2024 8:50 AM [facility] Calcium 8.8 8.5 - 10.5 mg/dL LAB CHEMISTRY METHOD 04/28/2024 8:50 AM EST [facility] AST (SGOT) 15 10 - 42 unit/L LAB CHEMISTRY METHOD 04/28/2024 8:50 AM [facility] ALT (SGPT) 17 10 - 60 unit/L LAB CHEMISTRY METHOD 04/28/2024 8:50 AM [facility] Alkaline Phosphatase 92 42 - 121 unit/L LAB CHEMISTRY METHOD 04/28/2024 8:50 AM [facility] Total Protein 6.5 6.0 - 8.0 g/dL LAB CHEMISTRY METHOD 04/28/2024 8:50 AM [facility] Albumin 3.6 3.2 - 5.0 g/dL LAB CHEMISTRY METHOD 04/28/2024 8:50 AM [facility] Total Bilirubin 0.4 0.0 - 1.4 mg/dL LAB CHEMISTRY METHOD 04/28/2024 8:50 AM [facility] Blood Venous blood specimen / Unknown Venipuncture / Unknown 04/28/2024 8:13 AM EST 04/28/2024 8:18 AM EST Altaf Sanford DO LAB BLOOD ORDERABLE S [facility] [address] [place] [address], * ECG-Annotated (04/28/2024) Provider Onbase ECG ORDERABLES from Last 3 Months Care Teams Supervisor Cooler Service Relationship Specialty Start Date End Date Angel Resendiz MD [address] [address] PCP - General 12/30/14
[2024-07-10 09:18] LABS: MANUAL DIFF FLAG NO
--- NOTE | 2024-07-10 09:24 | PC.NURSE ---
Pt to CT Scan.
[2024-07-10 09:42] LABS: Alanine Aminotransferase 48 U/L (0-40); Albumin Level 4.1 g/dL (3.5-5.0); Alkaline Phosphatase 96 U/L (39-117); Anion Gap 10 (12-20); Aspartate Amino Transferase 51 U/L (5-37); Bilirubin Total 0.2 mg/dL (0.0-1.0); Blood Urea Nitrogen 11 mg/dL (9-16); Calcium 8.2 mg/dL (8.4-10.2); Carbon Dioxide 23 mmol/L (22-29); Chloride 110 mmol/L (96-108); Creatinine Clr Calc Pharmacy 133.5; Estimated Glomerular Filt Rate > 60; Ethanol < 10 mg/dL; Glucose Random 119 mg/dL (60-115); Potassium 3.4 mmol/L (3.3-5.1); Sodium 140 mmol/L (135-145); Total Protein 7.5 g/dL (6.5-8.0)
[2024-07-10 09:52] LABS: Basophils Percent Auto 0.5 % (0-2); Eosinophils Absolute Auto 0.2 X10*3/uL (0.0-0.4); Eosinophils Percent Auto 2.4 % (0-4); Hematocrit 35.3 % (42.0-52.0); Hemoglobin 12.9 g/dl (14.0-18.0); Imm Gran Abs Auto 0.02 X10*3/uL (0.00-0.03); Imm Gran Pct Auto 0.3 % (0.0-0.4); Lymphocytes Absolute Auto 1.4 X10*3/uL (1.2-4.9); Lymphocytes Percent Auto 22.3 % (20-40); Mean Corpuscular HGB Conc 36.5 g/dl (31.0-36.0); Mean Corpuscular Hemoglobin 30.6 pg (27.0-33.0); Mean Corpuscular Volume 83.6 fL (80.0-98.0); Mean Platelet Volume 11.6 fL (9.4-12.4); Monocytes Absolute Auto 0.7 X10*3/uL (0.1-1.2); Monocytes Percent Auto 10.4 % (2-11); Neutrophils Percent Auto 64.1 % (45-73); Platelet Count 245 X10*3/uL (160-400); Red Blood Count 4.22 X10*6/uL (4.60-5.80); Red Cell Distribution Width 13.6 % (11.0-16.0); White Blood Count 6.2 X10*3/uL (4.8-10.8)
[2024-07-10 10:04] LABS: Influenza A PCR NEGATIVE (Negative); Influenza B PCR NEGATIVE (Negative); Resp Syncy Virus RNA Qual PCR NEGATIVE (Negative); SARS COV2 PCR INHOUSE NEGATIVE (Negative)
[2024-07-10 11:42] LABS: Appearance Urine Clear; Color Urine Yellow; Glucose Urine UA Negative (Negative); Leukocyte Esterase Urine Negative (Negative); Nitrite Urine Negative (Negative); UMIC TRIGGER UACC YES; Urine Blood Trace (Negative); Urine Ketones Negative (Negative); Urine Protein Negative (Neg-Trace)
[2024-07-10 11:51] LABS: Amphetamine Screen Urine Not Detected (Not Detect); Barbiturates, Urine Not Detected (Not Detect); Benzodiazepines Screen Urine Not Detected (Not Detect); Buprenorphine Scr Not Detected (Not Detect); Cannabinoid Screen Urine POSITIVE (Not Detect); Cocaine Screen Urine POSITIVE (Not Detect); Fentanyl, urine Not Detected (Not Detect); Methadone Screen, Urine Not Detected (Not Detect); Opiate Screen Urine Not Detected (Not Detect); Oxycodone Screen Urine Not Detected (Not Detect); Phencyclidine Screen Urine Not Detected (Not Detect)
[2024-07-10 12:01] LABS: Bacteria Urine None Seen (None Seen); Hyaline Casts Urine 0-2 /LPF (0-2); Squamous Epithelial Cell Urine 0-2 /HPF (0-2); WBC Urine 0-5 /HPF (0-5)
--- NOTE | 2024-07-10 12:36 | PC.NURSE ---
Pt intermittently shouting/yelling, states I'm hungry and I need hot food. Pt made aware he's been given tons of food to the point where we are out of sandwiches and crackers.
== END 2024-07-10 13:57 | disposition left against medical advice (07) ==
PROVIDERS: Registered Nurse Emergency; Emergency Provider Emergency Medicine Emergency Medical Services
DX: S00.83XA Contusion of other part of head, initial encounter (principal); Y00.XXXA Assault by blunt object, initial encounter; R45.1 Restlessness and agitation; F25.1 Schizoaffective disorder, depressive type; F19.10 Other psychoactive substance abuse, uncomplicated; F17.210 Nicotine dependence, cigarettes, uncomplicated; Z03.818 Encounter for observation for suspected exposure to other biological agents ruled out; Y93.9 Activity, unspecified; Y92.9 Unspecified place or not applicable; Y99.9 Unspecified external cause status; Z79.899 Other long term (current) drug therapy
CPT/HCPCS: 0241U; 70486; 80053; 80307; 81001; 85025; 99282; 99284; S9485

== ENCOUNTER → 2024-07-10 08:43 | Outpatient (BNV) | payer MEDICARE, MEDICAID, SELFPAY | PROVIDERS: Emergency Provider Emergency Medicine Emergency Medical Services; Visit Provider Radiology Diagnostic Radiology | DX: S00.83XA Contusion of other part of head, initial encounter (principal) | CPT/HCPCS: 70486 ==

== ENCOUNTER 2024-07-14 01:19 | Inpatient (IN) | payer MEDICARE, MEDICAID, SELFPAY ==
[2024-07-14 01:25] VITALS: BP 145/72; PULSE 68; RESP 16; TEMP 36.8; O2SAT 98; BMI 37.6
--- OUTSIDE RECORDS SUMMARY | 2024-07-14 01:48 | XMS_ITS | Clinical Summary ---
Author Organization [facility] Address [address] [place] [address] Phone Care Team Providers Care Direct Selling Counselor Name Role Phone Angel Resendiz MD Primary Care Provider [phone] Allergies No known active allergies Medications Medication [...] EST - 04/30/2024 11:11 AM EST Emergency [facility] Emergency [address] [place] [address] Auditory hallucinations (Primary Dx); Acute (undifferentiated) schizophrenia (CMS/HCC) Discharge Disposition: Another Health Care Institution Not Defined from Last 3 Months Surgical History Surgery Date Site/Laterality Comments OTHER SURGICAL HISTORY PROCEDURE: DENIES PREVIOUS SURGERY Medical History Medical History Date Comments Schizophrenia (CMS/HCC) DX:Schiz ophrenia (HCC); 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 [employer] Bipolar 1 [...] Name Priority Date/Time Associated Diagnosis Comments RAPID [id number] SCREENING, MOLECULAR STAT 04/28/2024 4:15 PM EST [...] from Last 3 Months Results * Rapid [id number], molecular (04/28/2024 4:15 PM EST) Pathologist [facility] SARS-COV-2 Screen Not Detected Not Detected METHOD [id number] 04/28/2024 4:45 PM EST [facility] Swab Both anterior nares / Unknown Non-blood Collection / Unknown 04/28/2024 4:15 PM EST 04/28/2024 4:25 PM EST Anu [facility]LEMING LAB MICROBIOLO GY - GENERAL ORDERABLES [facility] [address] [place] [address], * ECG 12 lead (04/28/2024 12:13 PM EST) [facility] Ventricular Rate ECG 66 BPM GEMUSE Atrial Rate 66 BPM GEMUSE P-R Interval 146 ms GEMUSE QRS Duration 92 ms GEMUSE Q-T Interval 412 ms GEMUSE QTc 431 ms GEMUSE P Wave [place] 21 degrees GEMUSE R [place] 44 degrees GEMUSE T [place] 44 degrees GEMUSE ECG Interpretation Normal sinus rhythm Nonspecific ST abnormality When compared with ECG of 23-FEB-2024 09:40, No significant change was found Confirmed by EZ AKBAR ([id number]) on 04/28/2024 10:57:13 PM GEMUSE 04/28/2024 12:1 3 PM EST 04/28/2024 10:57 PM EST Anu FLEMING ECG ORDERABLES GEMUSE * (ABNORMAL) Drug abuse screen 8a panel, urine (04/28/2024 8:14 AM EST) Pathologist [facility] Amphetamine Screen, Ur Negative Negative LAB CHEMISTRY METHOD 8:47 AM [facility] Comment:Certain OTC medicati ons containing ephedrine, phenylephrine, pseudoephedrine and phenylpropanolamine can cause false positive results. Barbiturate Screen, Ur Negative Negative LAB CHEMISTRY METHOD 4 8:47 AM [facility] Benzodiazepine Screen, Ur Negative Negative LAB CHEMISTRY METHOD 4 8:47 AM [facility] Cocaine Screen, Ur Positive(A ) Negative LAB CHEMISTRY METHOD 4 8:47 AM [facility] Opiate Screen, Ur Negative Negative LAB CHEMISTRY METHOD 4 8:47 AM [facility] Cannabinoid (THC) Screen, Ur Negative Negative LAB CHEMISTRY METHOD 4 8:47 AM [facility] Comment:Specimens from patie nts taking pantoprazole sodium (Protonix) have been shown to produce false positive results. Oxycodone Screen, Ur Negative Negative LAB CHEMISTRY METHOD 4 8:47 AM [facility] Fentanyl, Ur Negative Negative LAB CHEMISTRY METHOD 4 8:47 AM [facility] Urine Urine specimen obtained by clean catch procedure / Unknown Non-blood Collection / Unknown 04/28/2024 8:14 AM EST 04/28/2024 8:18 AM [facility] - 04/28/2024 8:47 AM EST Assay [...] LAB URINE ORDERABLE S Performing Organization Address [facility] Co de Phone Number [facility] [address] [place] [address], * Buprenorphine screen, urine (04/28/2024 8:14 AM EST) Buprenorphine Screen Urine Negative Negative LAB CHEMISTRY METHOD 04/28/2024 8:47 AM EST [facility] Urine Urine specimen obtained by clean catch procedure / Unknown Non-blood Collection / Unknown 04/28/2024 8:14 AM EST 04/28/2024 8:18 AM EST Narrative [facility] - 04/28/2024 8:47 AM EST Assay cutoff 5 ng/mL Semi-quantitative assay for screening purposes only. Unconfirmed screening result should not be used for non-medical purposes. *ALTERNATE METHOD CONFIRMATION DONE UPON REQUEST ONLY* Altaf Elmer Sanford DO LAB URINE ORDERABLE S Performing Organization Address [facility] Co de Phone Number [facility] [address] [place] [address], * Methadone, urine (04/28/2024 8:14 AM EST) [facility] Methadone Screen, Urine Negative Negative LAB CHEMISTRY METHOD 04/28/2024 8:47 AM EST [facility] Comment: Assay cutoff 300 ng/mL Semi-quantitative assay for screening purposes only. Unconfirmed screening result should not be used for non-medical purposes. *ALTERNATE METHOD CONFIRMATION DONE UPON REQUEST ONLY* Urine Urine specimen obtained by clean catch procedure / Unknown Non-blood Collection / Unknown 04/28/2024 8:14 AM EST 04/28/2024 8:18 AM EST Altaf Payne Juvenal SAAVEDRA LAB URINE ORDERABLE S [facility] [address] [place] [address], * Phencyclidine, urine (04/28/2024 8:14 AM EST) Pathologist [facility] PCP Scrn, Ur Negative Negative LAB CHEMISTRY METHOD 04/28/2024 8:47 AM [facility] Comment: Assay cutoff 25 ng/mL Semi-quantitative assay for screening purposes only. Unconfirmed screening result should not be used for non-medical purposes. *ALTERNATE METHOD CONFIRMATION DONE UPON REQUEST ONLY* Urine Urine specimen obtained by clean catch procedure / Unknown Non-blood Collection / Unknown 04/28/2024 8:14 AM EST 04/28/2024 8:18 AM EST Altaf Sanford DO LAB URINE ORDERABLE S Performing Organization Address City/[facility]/ZIP Co de Phone Number [facility] [address] [place] [address], * (ABNORMAL) CBC auto differential (04/28/2024 8:13 AM EST) [facility] WBC 6.8 4.8 - 10.8 K/mcL LAB HEMETOLOGY METHOD 04/28/2024 8:22 AM [facility] RBC 3.80(L) 4.50 - 5.50 M/mcL LAB HEMETOLOGY METHOD 04/28/2024 8:22 AM [facility] Hemoglobin 11.9(L) 13.5 - 17.5 g/dL LAB HEMETOLOGY METHOD 04/28/2024 8:22 AM [facility] Hematocrit 32.9(L) 42.0 - 54.0 % LAB HEMETOLOGY METHOD 04/28/2024 8:22 AM [facility] MCV 85.9 79.0 - 98.0 FL LAB HEMETOLOGY METHOD 04/28/2024 8:22 AM [facility] MCH 31.1 27.0 - 32.0 pcg LAB HEMETOLOGY METHOD 04/28/2024 8:22 AM [facility] MCHC 36.2 32.0 - 37.0 g/dL LAB HEMETOLOGY METHOD 04/28/2024 8:22 AM [facility] RDW 12.8 11.0 - 15.0 % LAB HEMETOLOGY METHOD 04/28/2024 8:22 AM [facility] Platelets 247 130 - 400 K/mcL LAB HEMETOLOGY METHOD 04/28/2024 8:22 AM [facility] MPV 11.6(H) 7.0 - 11.0 FL LAB HEMETOLOGY METHOD 04/28/2024 8:22 AM [facility] NRBC 0.0 <1.0 % LAB HEMETOLOGY METHOD 04/28/2024 8:22 AM [facility] NRBC Absolute 0.00 <0.10 K/mcL LAB HEMETOLOGY METHOD 04/28/2024 8:22 AM [facility] Neutrophils Relative 36.3 % LAB HEMETOLOGY METHOD 04/28/2024 8:22 AM [facility] Lymphocytes Relative 50.4 % LAB HEMETOLOGY METHOD 04/28/2024 8:22 AM [facility] Monocytes Relative 9.3 % LAB HEMETOLOGY METHOD 04/28/2024 8:22 AM [facility] Eosinophils Relative 3.5 % LAB HEMETOLOGY METHOD 04/28/2024 8:22 AM [facility] Basophils Relative 0.4 % LAB HEMETOLOGY METHOD 04/28/2024 8:22 AM [facility] Immature Granulocytes Relative 0.1 % LAB HEMETOLOGY METHOD 04/28/2024 8:22 AM [facility] Neutrophils Absolute 2.47 1.50 - 7.00 K/[facility] LAB HEMETOLOGY METHOD 04/28/2024 8:22 AM EST [facility] Lymphocytes Absolute 3.43 1.00 - 5.00 K/mcL LAB HEMETOLOGY METHOD 04/28/2024 8:22 AM EST [facility]) [facility] Monocytes Absolute 0.63 0.20 - 1.00 K/[facility] LAB HEMETOLOGY METHOD 04/28/2024 8:22 AM EST [facility]) [facility] Eosinophils Absolute 0.24 0.00 - 0.50 K/[facility] HEMETOLOGY METHOD 04/28/2024 8:22 AM EST [facility]) [facility] Basophils Absolute 0.03 0.00 - 0.20 K/[facility] HEMETOLOGY METHOD 04/28/2024 8:22 AM EST [facility]) [facility] Immature Granulocytes Absolute 0.01 0.00 - 0.03 K/[facility] HEMETOLOGY METHOD 04/28/2024 8:22 AM EST [facility]) [facility] Blood Venous blood specimen / Unknown Venipuncture / Unknown 04/28/2024 8:13 AM EST 04/28/2024 8:18 AM EST Altaf Sanford DO LAB BLOOD ORDERABLE S [facility] [address] [place] [address], * Ethanol (04/28/2024 8:13 AM EST) Ethanol Level <3 0 - 10 mg/dL LAB CHEMISTRY METHOD 04/28/2024 8:49 AM EST [facility] Blood Venous blood specimen / Unknown Venipuncture / Unknown 04/28/2024 8:13 AM EST 04/28/2024 8:18 AM EST Altaf Sanford DO LAB BLOOD ORDERABLE S [facility] [address] [place] [address], * (ABNORMAL) Acetaminophen level (04/28/2024 8:13 AM EST) Acetaminophen Level 6.3(L) 10.0 - 30.0 mcg/mL LAB CHEMISTRY METHOD 04/28/2024 8:49 AM EST [facility] Blood Venous blood specimen / Unknown Venipuncture / Unknown 04/28/2024 8:13 AM EST 04/28/2024 8:18 AM EST Altaf Sanford DO LAB BLOOD ORDERABLE S Performing Organization Address [facility]/ZIP Co de Phone Number [facility] [address] [place] [address], * Salicylate level (04/28/2024 8:13 AM EST) Salicylate Level 2.1 2.0 - 29.0 mg/dL LAB CHEMISTRY METHOD 04/28/2024 8:49 AM EST [facility] Blood Venous blood specimen / Unknown Venipuncture / Unknown 04/28/2024 8:13 AM EST 04/28/2024 8:18 AM EST Altaf Sanford DO LAB BLOOD ORDERABLE S [facility] [address] [place] [address], * (ABNORMAL) [place] level (04/28/2024 8:13 AM EST) [place] Level <0.2(L) 0.6 - 1.2 mEq/L LAB CHEMISTRY METHOD 04/28/2024 5:53 PM EST [facility] Blood Venous blood specimen / Unknown Venipuncture / Unknown 04/28/2024 8:13 AM EST 04/28/2024 8:18 AM EST Fariba Garcia NP LAB BLOOD ORDERABLES [facility] [address] [place] [address], [place] [phone] * (ABNORMAL) Comprehensive metabolic panel (04/28/2024 8:13 AM EST) Sodium 139 133 - 145 mmol/L LAB CHEMISTRY METHOD 04/28/2024 8:50 AM EST [facility] Potassium 3.1(L) 3.5 - 5.5 mmol/L LAB CHEMISTRY METHOD 04/28/2024 8:50 AM [facility] Chloride 110 96 - 110 mmol/L LAB CHEMISTRY METHOD 04/28/2024 8:50 AM [facility] CO2 23 21 - 32 mmol/L LAB CHEMISTRY METHOD 04/28/2024 8:50 AM [facility] Anion Gap 6 3 - 11 LAB CHEMISTRY METHOD 04/28/2024 8:50 AM [facility] Glucose 97 70 - 100 mg/dL LAB CHEMISTRY METHOD 04/28/2024 8:50 AM [facility] BUN 9 5 - 25 mg/dL LAB CHEMISTRY METHOD 04/28/2024 8:50 AM [facility] Creatinine 0.80 0.70 - 1.30 mg/dL LAB CHEMISTRY METHOD 04/28/2024 8:50 AM [facility] eGFR 116 >=60 mL/min/1. 73m2 LAB CHEMISTRY METHOD 04/28/2024 8:50 AM [facility] Comment:Calculation based on the??Chronic Kidney Disease Epidemiology Collaboration (CKD-EPI) equation refit??without adjustment for race. BUN/Creatinine Ratio 11.3 LAB CHEMISTRY METHOD 04/28/2024 8:50 AM [facility] Calcium 8.8 8.5 - 10.5 mg/dL LAB CHEMISTRY METHOD 04/28/2024 8:50 AM EST [facility] AST (SGOT) 15 10 - 42 unit/L LAB CHEMISTRY METHOD 04/28/2024 8:50 AM [facility] ALT (SGPT) 17 10 - 60 unit/L LAB CHEMISTRY METHOD 04/28/2024 8:50 AM [facility] Alkaline Phosphatase 92 42 - 121 unit/L LAB CHEMISTRY METHOD 04/28/2024 8:50 AM [facility] Total Protein 6.5 6.0 - 8.0 g/dL LAB CHEMISTRY METHOD 04/28/2024 8:50 AM [facility] Albumin 3.6 3.2 - 5.0 g/dL LAB CHEMISTRY METHOD 04/28/2024 8:50 AM [facility] Total Bilirubin 0.4 0.0 - 1.4 mg/dL LAB CHEMISTRY METHOD 04/28/2024 8:50 AM [facility] Blood Venous blood specimen / Unknown Venipuncture / Unknown 04/28/2024 8:13 AM EST 04/28/2024 8:18 AM EST Altaf Sanford DO LAB BLOOD ORDERABLE S [facility] [address] [place] [address], * ECG-Annotated (04/28/2024) Provider Onbase ECG ORDERABLES from Last 3 Months Care Teams Direct Selling Counselor Relationship Specialty Start Date End Date Angel Resendiz MD [address] [address] PCP - General 12/30/14
--- NOTE | 2024-07-14 02:03 | PC.NURSE ---
Pts belongings, 3 bags, placed in [place] shelf 1
--- NOTE | 2024-07-14 03:42 | ED_ITS ---
HPI - General Adult General Chief complaint: General Medical Stated complaint: Disorientated, Dehydrated, unable to sleep Time Seen by Provider: 07/14/24 03:28 Source: patient and EMS Mode of arrival: ambulatory Limitations: no limitations History of Present Illness ED Provider: HPI narrative: Patient with history of schizoaffective disorder, bipolar type with history of polysubstance abuse just discharged from psych floor on 06/27 comes here in very disorganized behavior saying that he was released from assisted earlier today but he stayed there only for few hours asking for Invega which received on 06/27/24 saying that he is not getting his medications but [facility] supposed to give him medications denies any SI or HI says that he wants to sleep here saying that his mom in [place] somebody gave her rat poison but he saw her yesterday Related Data Previous Rx's ?Medication ?Instructions ?Recorded Levocarnatine 330 mg PO BID 30 days #60 tab-caps 06/26/24 benztropine 1 mg tablet 1 mg PO BID 30 days #60 tabs 06/26/24 clonidine HCl 0.1 mg tablet 0.1 mg PO BID 30 days #60 tabs 06/26/24 divalproex 500 mg tablet,extended 1,500 mg (3 x 500 mg) PO BEDTIME 06/26/24 release 24 hr 30 days #90 tabs doxepin 50 mg capsule 50 mg PO BEDTIME 30 days #30 caps 06/26/24 hydroxyzine HCl 25 mg tablet 25 mg PO Q6H PRN Anxiety 30 days 06/26/24 #90 tabs lithium carbonate 450 mg 900 mg (2 x 450 mg) PO BEDTIME 30 06/26/24 tablet,extended release days #60 tabs nicotine (polacrilex) 4 mg gum 4 mg buccal Q2H PRN nicotine 06/26/24 cravings 30 days #100 ea nicotine 21 mg/24 hr daily 21 mg transdermal DAILY PRN 06/26/24 transdermal patch nicotine cravings 28 days #28 ea olanzapine 15 mg tablet 30 mg (2 x 15 mg) PO BEDTIME 30 06/26/24 days #60 tabs paliperidone palmitate 234 mg/1.5 234 mg (1.5 mL) IM Q30D 30 days 06/26/24 mL intramuscular syringe (Invega #1.5 mL Sustenna) trazodone 50 mg tablet 50 mg PO BEDTIME 30 days #30 tabs 06/26/24 zolpidem 5 mg tablet 5 mg PO BEDTIME PRN ONLY if 06/26/24 continued insomnia 30 days #30 tabs olanzapine 5 mg tablet 5 mg PO TID PRN agitation 30 days 06/27/24 #30 tabs Allergies Allergy/AdvReac Type Severity Reaction Status Date / Time No Known Allergies Allergy Verified 07/14/24 01:30 Review of Systems 2 Review of Systems: Yes Unobtainable due to mental status [facility] Past Medical History Medical History Schizoaffective disorder, bipolar type Schizoaffective disorder Polysubstance abuse Family History Family History Other Schizoaffective disorder Social History Social History Household Members: Friend(s) Household Members Other:: has a roommate Housing: Apartment Do you presently have visiting nurse or other home services: Yes Alcohol intake: current Patient Tobacco Use Status: Current everyday Tobacco user Tobacco use type: Cigarette Cigarettes Per Day: 3 Smoked in Last 30 Days: No e-Cigarette/Vaping Use: Never Used Second Hand Smoke Exposure: No Substance Use Type: Crack/Cocaine and Marijuana Advance Directives: No Advance Directives Information Provided: No Do you have a plan to hurt others: No Plan service: No Sexual orientation: Unable to collect Physical Exam ED Vital Signs: Vital Signs - 24 hr 07/14/24 01:25 07/14/24 04:19 Temperature 98.2 F 98.2 F Pulse Rate 68 77 Respiratory Rate 16 16 Blood Pressure 145/72 H 108/48 L Pulse Oximetry 98 97 Oxygen Delivery Method Room Air Room Air BMI result Body Mass Index 37.6 Appearance: Alert. Disorganized. No acute distress. Eyes: PERRLA, No Nystagmus ENT: Pharynx normal. Oral Mucosa moist Neck: Normal inspection. Neck supple. CVS: Normal heart rate and rhythm. Pulses normal. Respiratory: No respiratory distress. Equal air entry bilateral, no wheezing/rales/rhonchi Abdomen: Soft and nontender. Bowel sounds are present, no mass palpable, no CVA tenderness Skin: Skin warm and dry. Normal skin color. Normal skin turgor. Extremities: No lower extremity edema. No calf tenderness Psych: Denies any suicidal ideation asking for medication denies any hallucination or delusion Neuro: Oriented X 3. No motor deficit. No sensory deficit.No cerebellar signs , cranial nerves II-XII intact Medical Decision Making Medical Decision Making [facility] Narrative: Patient has schizoaffective disorder bipolar type with disorganized behavior with cocaine abuse will get care team involved for further management Lab Data [facility] Lab Attestation statement: I reviewed the patient's lab results. 07/14/24 04:22 07/14/24 04:22 Labs: Lab Results 07/14/24 07/14/24 Range/Units 04:22 06:42 WBC 5.3 (4.8-10.8) X10*3/uL RBC 4.11 L (4.60-5.80) X10*6/uL Hgb 12.6 L (14.0-18.0) g/dl Hct 33.8 L (42.0-52.0) % MCV 82.2 (80.0-98.0) fL MCH 30.7 (27.0-33.0) pg MCHC 37.3 H (31.0-36.0) g/dl RDW 13.7 (11.0-16.0) % Plt Count 275 (160-400) X10*3/uL MPV 10.8 (9.4-12.4) fL Immature Gran % (Auto) 0.2 (0.0-0.4) % Neut % (Auto) 47.7 (45-73) % Lymph % (Auto) 36.2 (20-40) % [place] % (Auto) 12.3 H (2-11) % Eos % (Auto) 2.7 (0-4) % Baso % (Auto) 0.9 (0-2) % Lymph # (Auto) 1.9 (1.2-4.9) X10*3/uL [place] # (Auto) 0.7 (0.1-1.2) X10*3/uL Eos # (Auto) 0.1 (0.0-0.4) X10*3/uL Baso # (Auto) 0.1 (0.0-0.2) X10*3/uL Abs Immat Gran (auto) 0.01 (0.00-0.03) X10*3/uL Absolute Neuts (auto) 2.5 (2.0-8.3) x10*3/uL Absolute Nucleated RBC 0.000 (0.0-0.012) X10*3/uL Nucleated RBC % (auto) 0.0 (0.0-0.2) /100WBC Sodium 140 (135-145) mmol/L Potassium 3.2 L (3.3-5.1) mmol/L Chloride 109 H (96-108) mmol/L Carbon Dioxide 19 L (22-29) mmol/L Anion Gap 15 (12-20) BUN 9 (9-16) mg/dL Creatinine 0.74 (0.5-1.4) mg/dL Estim Creat Clear Calc 157.7 Estimated GFR > 60 Random Glucose 141 H (60-115) mg/dL Calcium 8.6 (8.4-10.2) mg/dL Magnesium 1.9 (1.6-2.6) mg/dL Total Bilirubin 0.3 (0.0-1.0) mg/dL AST 30 (5-37) U/L ALT 39 (0-40) U/L Alkaline Phosphatase 79 (39-117) U/L Total Protein 6.9 (6.5-8.0) g/dL Albumin 3.7 (3.5-5.0) g/dL Urine Opiates Screen Not Detected (Not Detect) Ur Buprenorphine Scrn Not Detected (Not Detect) ng/mL Ur Oxycodone Screen Not Detected (Not Detect) ng/mL Urine Methadone Screen Not Detected (Not Detect) ng/mL Urine Fentanyl Screen Not Detected (Not Detect) Ur Barbiturates Screen Not Detected (Not Detect) Ur Phencyclidine Scrn Not Detected (Not Detect) Ur Amphetamines Screen Not Detected (Not Detect) U Benzodiazepines Scrn Not Detected (Not Detect) Urine Cocaine Screen POSITIVE H (Not Detect) U Marijuana (THC) Screen POSITIVE H (Not Detect) Ethyl Alcohol < 10 mg/dL COVID-19 (JOY) Negative (Negative) COVID-19 Clin Com See Note Discharge Plan Discharge Clinical Impression: Polysubstance abuse, Schizoaffective disorder, bipolar type Patient Disposition: Still a Patient Prescriptions: No Action nicotine 21 mg/24 hr Patch 24 Hour 21 mg transdermal DAILY PRN (Reason: nicotine cravings) 28 Days Qty: 28 0RF nicotine (polacrilex) 4 mg gum 4 mg buccal Q2H PRN (Reason: nicotine cravings) 30 Days Qty: 100 0RF clonidine HCl 0.1 mg Tablet 0.1 mg PO BID 30 Days Qty: 60 0RF Protocol: Hold for SBP< HOLD for SBP < : 90 benztropine 1 mg Tablet 1 mg PO BID 30 Days Qty: 60 0RF divalproex 500 mg Tablet Extended Release 24 Hr 1,500 mg PO BEDTIME 30 Days Qty: 90 0RF hydroxyzine HCl 25 mg Tablet 25 mg PO Q6H PRN (Reason: Anxiety) 30 Days Qty: 90 0RF lithium carbonate 450 mg Tablet Extended Release 900 mg PO BEDTIME 30 Days Qty: 60 0RF Invega Sustenna 234 mg/1.5 mL Syringe 234 mg IM Q30D 30 Days Qty: 1.5 0RF Rx Instructions: last dose received on 06/27/24 Levocarnatine 330 mg PO BID 30 Days Qty: 60 0RF zolpidem 5 mg Tablet 5 mg PO BEDTIME PRN (Reason: ONLY if continued insomnia) 30 Days Qty: 30 0RF doxepin 50 mg capsule 50 mg PO BEDTIME 30 Days Qty: 30 0RF trazodone 50 mg tablet 50 mg PO BEDTIME 30 Days Qty: 30 0RF olanzapine 15 mg tablet 30 mg PO BEDTIME 30 Days Qty: 60 0RF olanzapine 5 mg Tablet 5 mg PO TID PRN (Reason: agitation) 30 Days Qty: 30 0RF Print Language: Italian
--- NOTE | 2024-07-14 03:59 | ECG_ITS ---
Test Reason : CLEARANCE Blood Pressure : */* mmHG Vent. Rate : 70 BPM Atrial Rate : 70 BPM P-R Int : 128 ms QRS Dur : 92 ms QT Int : 420 ms P-R-T Axes : 22 46 25 degrees QTcB Int : 453 ms Normal sinus rhythm Minimal voltage criteria for LVH, may be normal variant ( Sokolow-Singletary ) T wave abnormality, consider anterior ischemia Abnormal ECG When compared with ECG of 29-May-2024 08:29, T wave inversion now evident in Anterior leads Referred By: Dread Sheldon Electronically Signed By: ABDIEL VILLAR
[2024-07-14 04:19] VITALS: BP 108/48; PULSE 77; RESP 16; TEMP 36.8; O2SAT 97
[2024-07-14 04:28] LABS: Basophils Absolute Auto 0.1 X10*3/uL (0.0-0.2); Basophils Percent Auto 0.9 % (0-2); Eosinophils Absolute Auto 0.1 X10*3/uL (0.0-0.4); Eosinophils Percent Auto 2.7 % (0-4); Hematocrit 33.8 % (42.0-52.0); Hemoglobin 12.6 g/dl (14.0-18.0); Imm Gran Abs Auto 0.01 X10*3/uL (0.00-0.03); Imm Gran Pct Auto 0.2 % (0.0-0.4); Lymphocytes Absolute Auto 1.9 X10*3/uL (1.2-4.9); Lymphocytes Percent Auto 36.2 % (20-40); MANUAL DIFF FLAG NO; Mean Corpuscular HGB Conc 37.3 g/dl (31.0-36.0); Mean Corpuscular Hemoglobin 30.7 pg (27.0-33.0); Mean Corpuscular Volume 82.2 fL (80.0-98.0); Mean Platelet Volume 10.8 fL (9.4-12.4); Monocytes Absolute Auto 0.7 X10*3/uL (0.1-1.2); Monocytes Percent Auto 12.3 % (2-11); Neutrophils Absolute Auto 2.5 x10*3/uL (2.0-8.3); Neutrophils Percent Auto 47.7 % (45-73); Platelet Count 275 X10*3/uL (160-400); Red Blood Count 4.11 X10*6/uL (4.60-5.80); Red Cell Distribution Width 13.7 % (11.0-16.0); White Blood Count 5.3 X10*3/uL (4.8-10.8)
--- NOTE | 2024-07-14 04:45 | PC.NURSE ---
PT resting comfortably in bed, waiting to be seen by crisis in am
[2024-07-14 04:47] LABS: COVID-19 Test Negative (Negative); IDNOW Serial# 6674DD1D
[2024-07-14 05:02] LABS: Alanine Aminotransferase 39 U/L (0-40); Albumin Level 3.7 g/dL (3.5-5.0); Alkaline Phosphatase 79 U/L (39-117); Anion Gap 15 (12-20); Aspartate Amino Transferase 30 U/L (5-37); Bilirubin Total 0.3 mg/dL (0.0-1.0); Blood Urea Nitrogen 9 mg/dL (9-16); Calcium 8.6 mg/dL (8.4-10.2); Carbon Dioxide 19 mmol/L (22-29); Chloride 109 mmol/L (96-108); Creatinine Clr Calc Pharmacy 157.7; Estimated Glomerular Filt Rate > 60; Ethanol < 10 mg/dL; Glucose Random 141 mg/dL (60-115); Magnesium 1.9 mg/dL (1.6-2.6); Potassium 3.2 mmol/L (3.3-5.1); Sodium 140 mmol/L (135-145); Total Protein 6.9 g/dL (6.5-8.0)
--- NOTE | 2024-07-14 06:36 | PC.NURSE ---
pt escorted to pod with security, report given to nurse.
--- NOTE | 2024-07-14 06:38 | PC.NURSE ---
patient moved into pod providing urine
[2024-07-14 07:01] LABS: Amphetamine Screen Urine Not Detected (Not Detect); Barbiturates, Urine Not Detected (Not Detect); Benzodiazepines Screen Urine Not Detected (Not Detect); Buprenorphine Scr Not Detected (Not Detect); Cannabinoid Screen Urine POSITIVE (Not Detect); Cocaine Screen Urine POSITIVE (Not Detect); Fentanyl, urine Not Detected (Not Detect); Methadone Screen, Urine Not Detected (Not Detect); Opiate Screen Urine Not Detected (Not Detect); Oxycodone Screen Urine Not Detected (Not Detect); Phencyclidine Screen Urine Not Detected (Not Detect)
--- NOTE | 2024-07-14 08:42 | PHA.MEDREC ---
Pharmacy Consult ? Medication Reconciliation RN has completed the medication reconciliation, [facility] reviewed. Patient was discharged 2 weeks ago. Last dose of Invega Sustenna was 234 mg on 06/27/24.
--- NOTE | 2024-07-14 08:46 | PC.NURSE ---
CARE team at bedside to evaluate pt
[2024-07-14] MEDS: cloNIDine HCL 0.1 MG TABLET PO ×2 (10:51→20:49)
[2024-07-14] MEDS: hydrOXYzine HCL 25 MG TABLET PO ×2 (10:51→17:54)
[2024-07-14] MEDS: Benztropine Mesylate 1 MG TABLET PO ×2 (10:51→20:50)
[2024-07-14] MEDS: Nicotine 21 MG PATCH.TD24 TRANSDERMA (10:51)
[2024-07-14 11:04] VITALS: BP 157/103; PULSE 70; RESP 18; TEMP 36.6; O2SAT 96
[2024-07-14] MEDS: OLANZapine 5 MG TABLET PO (13:10)
[2024-07-14 18:34] VITALS: BP 133/75; PULSE 73; RESP 18; TEMP 36.6; O2SAT 98
--- NOTE | 2024-07-14 19:46 | PC.NURSE ---
patient appears to remain at rest presently respirations are even and unlabored patient appears in no distress.
[2024-07-14] MEDS: levOCARNitine Oral Sol 1,000 MG/10 ML UD Cup 330 MG PO (20:47)
[2024-07-14] MEDS: Divalproex Sodium ER 500 MG TAB.ER.24H 1500 MG PO (20:48)
[2024-07-14 20:49] VITALS: BP 133/75
[2024-07-14] MEDS: Lithium Carbonate ER 450 MG TABLET.ER 900 MG PO (20:49)
[2024-07-14] MEDS: OLANZapine 10 MG TABLET 30 MG PO (20:50)
[2024-07-14] MEDS: traZODone HCL 50 MG TABLET PO (20:50)
[2024-07-14] MEDS: Doxepin HCl 25 MG CAPSULE 50 MG PO (20:50)
[2024-07-15] MEDS: hydrOXYzine HCL 25 MG TABLET PO ×3 (01:28→14:53)
[2024-07-15] MEDS: OLANZapine 5 MG TABLET PO ×3 (01:28→12:19)
[2024-07-15] MEDS: Nicotine Polacrilex 2 MG GUM 4 MG BUCCAL (06:24)
[2024-07-15] MEDS: Benztropine Mesylate 1 MG TABLET PO ×2 (07:56→20:24)
[2024-07-15 08:00] VITALS: BP 139/70
[2024-07-15] MEDS: cloNIDine HCL 0.1 MG TABLET PO ×2 (08:00→20:24)
[2024-07-15] MEDS: levOCARNitine Oral Sol 1,000 MG/10 ML UD Cup 330 MG PO ×2 (08:03→20:21)
[2024-07-15 08:04] VITALS: BP 139/70; PULSE 76; RESP 18; TEMP 36.7; O2SAT 98
--- NOTE | 2024-07-15 08:56 | PC.NURSE ---
pt in and out of room, appears delusional, talking about people poisoning his mother by replacing her insulin with rat poison and some other odd statements, rapid speech and difficult to understand at times, cooperative and friendly with staff, colored something for the staff and wrote inspirational words on the back. prn's given, asked to leave and I explained bed search to him, CARE team aware, medicated as ordered
[2024-07-15] MEDS: Acetaminophen 325 MG TABLET 650 MG PO ×2 (12:18→18:18)
[2024-07-15 12:42] VITALS: BP 137/70; PULSE 56; RESP 16; TEMP 36.7; O2SAT 100
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
[2024-07-15 20:00] VITALS: BP 171/78; PULSE 79; RESP 16; TEMP 36.4; O2SAT 98
[2024-07-15] MEDS: traZODone HCL 50 MG TABLET PO (20:23)
[2024-07-15 20:24] VITALS: BP 171/78
[2024-07-15] MEDS: Divalproex Sodium ER 500 MG TAB.ER.24H 1500 MG PO (20:24)
[2024-07-15] MEDS: Lithium Carbonate ER 450 MG TABLET.ER 900 MG PO (20:24)
[2024-07-15] MEDS: OLANZapine 10 MG TABLET 30 MG PO (20:24)
[2024-07-15] MEDS: Doxepin HCl 25 MG CAPSULE 50 MG PO (20:24)
[2024-07-16] MEDS: hydrOXYzine HCL 25 MG TABLET PO ×2 (05:55→16:33)
[2024-07-16] MEDS: OLANZapine 5 MG TABLET PO ×2 (05:56→11:54)
[2024-07-16 08:00] VITALS: BP 136/96; PULSE 74; RESP 18; TEMP 36.9; O2SAT 98
[2024-07-16 08:08] LABS: Alanine Aminotransferase 38 U/L (0-40); Albumin Level 4.2 g/dL (3.5-5.0); Alkaline Phosphatase 93 U/L (39-117); Anion Gap 14 (12-20); Aspartate Amino Transferase 26 U/L (5-37); Bilirubin Total 0.2 mg/dL (0.0-1.0); Blood Urea Nitrogen 14 mg/dL (9-16); Calcium 9.2 mg/dL (8.4-10.2); Carbon Dioxide 21 mmol/L (22-29); Chloride 109 mmol/L (96-108); Cholesterol 135 mg/dL (<200); Creatinine Clr Calc Pharmacy 153.5; Estimated Glomerular Filt Rate > 60; Glucose Random 102 mg/dL (60-115); HDL Cholesterol 56 mg/dL (>40); LDL Cholesterol Calculated 73 mg/dL (<100); Potassium 4.5 mmol/L (3.3-5.1); Sodium 139 mmol/L (135-145); Total Protein 7.8 g/dL (6.5-8.0); Triglycerides 34 mg/dL (<150)
[2024-07-16 08:24] VITALS: BP 136/96
[2024-07-16] MEDS: Benztropine Mesylate 1 MG TABLET PO ×2 (08:24→21:24)
[2024-07-16] MEDS: cloNIDine HCL 0.1 MG TABLET PO ×2 (08:24→21:24)
[2024-07-16] MEDS: levOCARNitine Oral Sol 1,000 MG/10 ML UD Cup 330 MG PO ×2 (08:26→21:23)
--- NOTE | 2024-07-16 12:42 | HO.PSYCHPN ---
Subjective Subjective Date of Service: 07/16/24 Reason For Visit: Disorganization Subjective Notes: Section 12B (up on 07/18/2024) Interim History: Pt slept most of the night. He is also taking medications as prescribed. Pt reports step mother was killed with her baby. He reports he just came to the hospital to check if he was due for next injection (it appears he had reported he was off medications after discharge). 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 He denies SI/HI. continues to have paranoid delusions, internally preoccupied although denies when asked. Medication Compliance: Yes Diagnostics Vital Signs (24Hr): Vital Signs - 24 hr 07/15/24 20:00 07/15/24 20:24 07/16/24 08:00 Temperature 97.5 F 98.5 F Pulse Rate 79 74 Respiratory Rate 16 18 Blood Pressure 171/78 H 171/78 H 136/96 H Pulse Oximetry 98 98 Oxygen Delivery Method Room Air Room Air 07/16/24 08:24 Temperature Pulse Rate Respiratory Rate Blood Pressure 136/96 H Pulse Oximetry Oxygen Delivery Method BMI result Body Mass Index 37.6 Labs 07/14/24 04:22 07/16/24 07:34 Labs: Laboratory Results - last 48 hr 07/16/24 07:34 Sodium 139 Potassium 4.5 D Chloride 109 H Carbon Dioxide 21 L Anion Gap 14 BUN 14 Creatinine 0.76 Estim Creat Clear Calc 153.5 Estimated GFR > 60 Random Glucose 102 Calcium 9.2 D Total Bilirubin 0.2 AST 26 ALT 38 Alkaline Phosphatase 93 Total Protein 7.8 Albumin 4.2 Triglycerides 34 Cholesterol 135 LDL Cholesterol, Calc 73 HDL Cholesterol 56 Medications Medications Current Medications Acetaminophen (Acetaminophen 325 Mg Tablet) 650 mg PO Q6H PRN PRN Reason: Headache/Pain Mild Scale (1-3) Last Admin: 07/15/24 18:18 Dose: 650 mg Al Hydroxide/Mg Hydroxide (Magnesium Hydrox/Alum Hydrox 30 Ml Oral.Susp) 30 ml PO Q6H PRN PRN Reason: Heartburn/Nausea Benztropine Mesylate (Benztropine Mesylate 1 Mg Tablet) 1 mg PO BID [facility] Last Admin: 07/16/24 08:24 Dose: 1 mg Clonidine HCl (Clonidine Hcl 0.1 Mg Tablet) 0.1 mg PO BID [facility]; Protocol Last Admin: 07/16/24 08:24 Dose: 0.1 mg Divalproex Sodium (Divalproex Sodium Er 500 Mg Tab.Er.24h) 1,500 mg PO BEDTIME HELDER Last Admin: 07/15/24 20:24 Dose: 1,500 mg Doxepin HCl (Doxepin Hcl 25 Mg Capsule) 50 mg PO BEDTIME HELDER Last Admin: 07/15/24 20:24 Dose: 50 mg Hydroxyzine HCl (Hydroxyzine Hcl 25 Mg Tablet) 25 mg PO Q6H PRN PRN Reason: Anxiety Last Admin: 07/16/24 05:55 Dose: 25 mg Levocarnitine (Levocarnitine Oral Yovana 1,000 Mg/10 Ml Ud Cup) 330 mg PO BID [facility] Last Admin: 07/16/24 08:26 Dose: 330 mg Clarendon Carbonate (Clarendon Carbonate Er 450 Mg Tablet.Er) 900 mg PO BEDTIME [facility] Last Admin: 07/15/24 20:24 Dose: 900 mg Magnesium Hydroxide (Milk Of Magnesia 30 Ml Oral.Susp) 30 ml PO DAILY PRN PRN Reason: Constipation Nicotine (Nicotine 21 Mg Patch.Td24) 21 mg TRANSDERMA DAILY PRN PRN Reason: nicotine cravings Last Admin: 07/14/24 10:51 Dose: 21 mg Nicotine Polacrilex (Nicotine Polacrilex 2 Mg Gum) 4 mg BUCCAL Q2H PRN PRN Reason: nicotine cravings Last Admin: 07/15/24 06:24 Dose: 4 mg Olanzapine (Olanzapine 5 Mg Tablet) 5 mg PO TID PRN PRN Reason: agitation Last Admin: 07/16/24 11:54 Dose: 5 mg Olanzapine (Olanzapine 10 Mg Tablet) 30 mg PO BEDTIME [facility] Last Admin: 07/15/24 20:24 Dose: 30 mg Paliperidone Palmitate (Paliperidone Palmitate 234 Mg/1.5 Ml Syringe) 234 mg IM Q30D [facility] Trazodone HCl (Trazodone Hcl 50 Mg Tablet) 50 mg PO BEDTIME [facility] Last Admin: 07/15/24 20:23 Dose: 50 mg Trazodone HCl (Trazodone Hcl 50 Mg Tablet) 50 mg PO BEDTIME MRX1 PRN PRN Reason: Insomnia Zolpidem Tartrate (Zolpidem Tartrate 5 Mg Tablet) 5 mg PO BEDTIME PRN PRN Reason: ONLY if continued insomnia Allergies Allergies Allergy/AdvReac Type Severity Reaction Status Date / Time No Known Allergies Allergy Verified 07/14/24 01:30 Assessment & Plan Assessment & Plan (1) Schizoaffective disorder, bipolar type: Status: Acute Code(s): F25.0 - Schizoaffective disorder, bipolar type Plan 39-year-old male with schizoaffective disorder and cocaine use disorder with ACCS services, recently discharged from [facility] on 06/27/2024, needs readmission in the context of medication non adherence, significant disorganization, impulsive and agitated behavior, clear delusions influencing behavior. Insight very poor. Plan: Admit to inpatient psychiatry S12 Restart meds: Invega LUBIN 234 mg given on 06/27 (due 07/27), Depakote ER 1500 mg q.h.s. , l-carnitine 330 mg b.i.d. for hyperammonemia, lithium 900hs, Zyprexa 30mg hs, Doxepin 50 mg q.h.s. trazodone 50hs. 2/3 continue tx. will check ammonia. Reason for continued inpatient stay Substantial Risk for: inability to function Time Spent With Patient Time: Total time managing care of this patient today ____ minutes.
[2024-07-16 20:00] VITALS: BP 144/65; PULSE 92; RESP 16; TEMP 36.8; O2SAT 98
[2024-07-16 21:24] VITALS: BP 136/72
[2024-07-16] MEDS: traZODone HCL 50 MG TABLET PO (21:24)
[2024-07-16] MEDS: Doxepin HCl 25 MG CAPSULE 50 MG PO (21:24)
[2024-07-16] MEDS: OLANZapine 10 MG TABLET 30 MG PO (21:24)
[2024-07-16] MEDS: Divalproex Sodium ER 500 MG TAB.ER.24H 1500 MG PO (21:24)
[2024-07-16] MEDS: Lithium Carbonate ER 450 MG TABLET.ER 900 MG PO (21:24)
[2024-07-17] MEDS: OLANZapine 5 MG TABLET PO ×2 (06:46→17:56)
[2024-07-17 08:00] VITALS: BP 147/76; PULSE 70; RESP 18; TEMP 37.4; O2SAT 98
[2024-07-17 08:19] LABS: Ammonia 53 umol/L (13-55)
[2024-07-17] MEDS: Benztropine Mesylate 1 MG TABLET PO ×2 (08:41→21:24)
[2024-07-17] MEDS: cloNIDine HCL 0.1 MG TABLET PO ×2 (08:41→21:24)
[2024-07-17] MEDS: levOCARNitine Oral Sol 1,000 MG/10 ML UD Cup 330 MG PO ×2 (08:43→21:24)
[2024-07-17] MEDS: hydrOXYzine HCL 25 MG TABLET PO (13:09)
[2024-07-17 19:49] VITALS: BP 136/65; PULSE 88; RESP 16; TEMP 36.9; O2SAT 98
[2024-07-17] MEDS: OLANZapine 10 MG TABLET 30 MG PO (21:23)
[2024-07-17] MEDS: traZODone HCL 50 MG TABLET PO ×2 (21:24→21:25)
[2024-07-17] MEDS: Lithium Carbonate ER 450 MG TABLET.ER 900 MG PO (21:24)
[2024-07-17] MEDS: Divalproex Sodium ER 500 MG TAB.ER.24H 1500 MG PO (21:24)
[2024-07-17] MEDS: Doxepin HCl 25 MG CAPSULE 50 MG PO (21:25)
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
[2024-07-18 08:27] VITALS: BP 146/68; PULSE 76; RESP 16; TEMP 37.3; O2SAT 98
[2024-07-18] MEDS: Benztropine Mesylate 1 MG TABLET PO (08:49)
[2024-07-18] MEDS: cloNIDine HCL 0.1 MG TABLET PO (08:49)
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
[2024-07-18] MEDS: levOCARNitine Oral Sol 1,000 MG/10 ML UD Cup 330 MG PO (11:29)
[2024-07-18] MEDS: Naloxone HCl Nasal TAKE HOME 4 MG SPRAY 8 MG NOSTRILALT (11:29)
== END 2024-07-18 11:20 | disposition home or self-care (01) | DRG 885 ==
LOC: HO.ED 07:14 → HO.PM5 07-15 11:57
PROVIDERS: Social Worker; Admitting Provider Psychiatry & Neurology Psychiatry; Emergency Provider Internal Medicine; Visit Provider Psychiatry & Neurology Psychiatry
DX: F25.0 Schizoaffective disorder, bipolar type (principal); F17.210 Nicotine dependence, cigarettes, uncomplicated; Z71.6 Tobacco abuse counseling; F19.10 Other psychoactive substance abuse, uncomplicated; F14.90 Cocaine use, unspecified, uncomplicated; Z20.822 Contact with and (suspected) exposure to COVID-19; Z79.899 Other long term (current) drug therapy
CPT/HCPCS: 36415; 80053; 80061; 80307; 82140; 83735; 85025; 87635; 93005; 99285; S9485

== ENCOUNTER → 2024-07-14 03:59 | Outpatient (BNV) | payer MEDICARE, MEDICAID, SELFPAY | PROVIDERS: Emergency Provider Internal Medicine; Visit Provider Internal Medicine | DX: R94.31 Abnormal electrocardiogram [ECG] [EKG] (principal); Z01.810 Encounter for preprocedural cardiovascular examination | CPT/HCPCS: 93010 ==

== ENCOUNTER → 2024-07-15 11:38 | Outpatient (BNV) | payer MEDICARE, MEDICAID, SELFPAY | PROVIDERS: Admitting Provider Psychiatry & Neurology Psychiatry; Emergency Provider Internal Medicine; Visit Provider Psychiatry & Neurology Psychiatry | DX: F25.0 Schizoaffective disorder, bipolar type (principal) | CPT/HCPCS: 90792; 99232; 99239 ==

== ENCOUNTER 2024-07-24 17:19 | Emergency (ER) | payer MEDICARE, MEDICAID, SELFPAY ==
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
[2024-07-24 17:21] VITALS: BP 136/90; PULSE 92; O2SAT 97
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
[2024-07-24 17:42] VITALS: BP 151/80; PULSE 87; RESP 16; TEMP 38.4; O2SAT 99; BMI 35.7
[2024-07-24 18:09] LABS: Glucose, Whole Blood 109 mg/dL (60-115)
[2024-07-24] MEDS: Diphth,Pertus(ACell),Tet Adult 0.5 ML SYRINGE IM (18:19)
[2024-07-24] MEDS: Acetaminophen 325 MG TABLET 975 MG PO (18:19)
[2024-07-24 18:53] LABS: MANUAL DIFF FLAG NO
[2024-07-24 19:00] LABS: Basophils Percent Auto 0.4 % (0-2); Eosinophils Absolute Auto 0.2 X10*3/uL (0.0-0.4); Hematocrit 36.7 % (42.0-52.0); Hemoglobin 13.7 g/dl (14.0-18.0); Imm Gran Abs Auto 0.03 X10*3/uL (0.00-0.03); Imm Gran Pct Auto 0.3 % (0.0-0.4); Lymphocytes Absolute Auto 1.2 X10*3/uL (1.2-4.9); Lymphocytes Percent Auto 12.7 % (20-40); Mean Corpuscular HGB Conc 37.3 g/dl (31.0-36.0); Mean Corpuscular Hemoglobin 30.6 pg (27.0-33.0); Mean Corpuscular Volume 81.9 fL (80.0-98.0); Mean Platelet Volume 11.1 fL (9.4-12.4); Monocytes Percent Auto 10.5 % (2-11); Neutrophils Absolute Auto 6.9 x10*3/uL (2.0-8.3); Neutrophils Percent Auto 74.1 % (45-73); Platelet Count 252 X10*3/uL (160-400); Red Blood Count 4.48 X10*6/uL (4.60-5.80); Red Cell Distribution Width 13.2 % (11.0-16.0); White Blood Count 9.3 X10*3/uL (4.8-10.8)
[2024-07-24 19:08] LABS: Alanine Aminotransferase 37 U/L (0-40); Albumin Level 4.1 g/dL (3.5-5.0); Alkaline Phosphatase 84 U/L (39-117); Anion Gap 17 (12-20); Aspartate Amino Transferase 45 U/L (5-37); Bilirubin Total 0.7 mg/dL (0.0-1.0); Blood Urea Nitrogen 12 mg/dL (9-16); Calcium 8.8 mg/dL (8.4-10.2); Carbon Dioxide 22 mmol/L (22-29); Chloride 103 mmol/L (96-108); Creatinine Clr Calc Pharmacy 145.7; Estimated Glomerular Filt Rate > 60; Ethanol < 10 mg/dL; Glucose Random 152 mg/dL (60-115); Potassium 3.5 mmol/L (3.3-5.1); Sodium 138 mmol/L (135-145)
[2024-07-24 19:31] LABS: Influenza A PCR NEGATIVE (Negative); Influenza B PCR NEGATIVE (Negative); Resp Syncy Virus RNA Qual PCR NEGATIVE (Negative); SARS COV2 PCR INHOUSE NEGATIVE (Negative)
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
[2024-07-24 20:05] VITALS: BP 151/80; PULSE 87; RESP 16; TEMP 38.4; O2SAT 99
== END 2024-07-24 20:05 | disposition left against medical advice (07) ==
PROVIDERS: Nurse Practitioner Family; Emergency Provider Emergency Medicine Emergency Medical Services
DX: S00.81XA Abrasion of other part of head, initial encounter (principal); S00.212A Abrasion of left eyelid and periocular area, initial encounter; R51.9 Headache, unspecified; R10.2 Pelvic and perineal pain; H57.12 Ocular pain, left eye; R05.9 Cough, unspecified; R09.89 Other specified symptoms and signs involving the circulatory and respiratory systems; F17.210 Nicotine dependence, cigarettes, uncomplicated; X99.9XXA Assault by unspecified sharp object, initial encounter; Y93.89 Activity, other specified; Y92.89 Other specified places as the place of occurrence of the external cause; Y99.8 Other external cause status; Z23 Encounter for immunization; Z03.818 Encounter for observation for suspected exposure to other biological agents ruled out; Z51.81 Encounter for therapeutic drug level monitoring
CPT/HCPCS: 0241U; 36415; 70450; 70486; 80053; 80307; 82947; 85025; 90471; 90715; 99284

== ENCOUNTER → 2024-07-24 17:42 | Outpatient (BNV) | payer MEDICARE, MEDICAID, SELFPAY | PROVIDERS: Emergency Provider Emergency Medicine Emergency Medical Services; Visit Provider Radiology Vascular & Interventional Radiology | DX: S00.83XA Contusion of other part of head, initial encounter (principal); Y04.8XXA Assault by other bodily force, initial encounter | CPT/HCPCS: 70450; 70486 ==